=== PATIENT | female | born 1950 | race Caucasian/White ===

== ENCOUNTER 2019-04-10 09:39 | Inpatient (IN) ==
[2019-04-10] MEDS ORDERED: SODIUM CHLORIDE 0.9% 500 ML IV SCH (10:30)
[2019-04-10 11:00] LABS: Hematocrit (blood only) 20.8 % (37-47); Hemoglobin 6.1 g/dL (12.0-16.0); Mean Corpuscular Hgb Conc 29.3 g/dL (32-36); Mean Corpuscular Volume 81.6 fL (80-100); Mean Platelet Volume 8.5 fL (7.4-10.4); Platelet Count 514 K/uL (130-400); RDW Coefficient of Variation 14.2 % (11.5-14.5); RDW Standard Deviation 42.7 fL (36.4-46.3); Red Blood Count 2.55 M/uL (4.2-5.4); White Blood Count 6.12 K/uL (4.8-10.8)
[2019-04-10 11:04] LABS: Alanine Aminotransferase 21 U/L (12-78); Aspartate Aminotransferase 10 U/L (15-37); Blood Urea Nitrogen 22 mg/dl (7-18); Calcium 9.2 mg/dl (8.5-10.1); Carbon Dioxide 28 mmol/L (21-32); Chloride 109 mmol/L (98-107); Creatinine Clr Calc Pharmacy 60.1 ml/min; Est GFR (African American) 75.1; Est GFR (Non-African American) 64.8; Glucose 97 mg/dl (70-99); Sodium 142 mmol/L (136-145)
[2019-04-10 11:08] LABS: Albumin Globulin Ratio 1.5 (0.9-2); Alkaline Phosphatase 93 U/L (45-117); Bilirubin,Total 0.3 mg/dl (0.2-1); Globulin 2.6 gm/dl (2.5-4.0); Total Protein 6.6 gm/dl (6.4-8.2); Troponin I < 0.015 ng/ml (0-0.045)
[2019-04-10 11:09] LABS: D Dimer 1260 ug/L FEU (0-500)
[2019-04-10 11:16] LABS: Basophils # (auto) 0.03 K/uL (0-0.2); Basophils % (auto) 0.5 %; Eosinophils # (auto) 0.31 K/uL (0-0.5); Eosinophils % (auto) 5.1 %; Immature Granulocytes # (auto) 0.02 K/uL (0.00-0.02); Immature Granulocytes % (auto) 0.3 %; Lymphocytes # (auto) 1.21 K/uL (1.2-3.4); Lymphocytes % (auto) 19.8 %; Monocytes # (auto) 0.63 K/uL (0.11-0.59); Monocytes % (auto) 10.3 %; Neutrophils # (auto) 3.92 K/uL (1.4-6.5); RBC Morphology Unremarkable
[2019-04-10] MEDS ORDERED: SODIUM CHLORIDE 0.9% 250 ML IV PRN ×3 (11:23→16:02)
[2019-04-10] MEDS ORDERED: OPTIRAY 320 125ml IV PRN (11:31)
--- NOTE | 2019-04-10 11:57 | CT Scan Report ---
CT ANGIOGRAPHY OF THE CHEST, PULMONARY EMBOLUS PROTOCOL CLINICAL HISTORY: Chest pain and shortness of breath. COMPARISON STUDY: No previous studies for comparison. TECHNIQUE: Following IV administration of 97 mL of Optiray-320, helical axial images of the chest wer e obtained utilizing the pulmonary embolus protocol. Maximal intensity projections and sagittal and coronal reformats were viewed on an independent 3D workstation. IV contrast was administered without complication. Automated exposure control was utilized for the study. A dose lowering technique was utilized adhering to the principles of ALARA. CT DOSE: 280.87 mGy.cm FINDINGS: No pulmonary emboli are identified. There is no thoracic aortic dissection. The heart is m ildly enlarged. There is moderate coronary artery calcification. A moderate sized hiatal hernia is no olga. Central airways are patent. No consolidation to suggest pneumonia. Subpleural opacities reflect atelectasis. No pneumothorax or pleural effusion is noted. Bony thorax and upper abdomen are unremark able. IMPRESSION: 1. No pulmonary emboli identified. 2. No acute intrathoracic findings. 3. Mild cardiomegaly and moderate coronary artery calcification. 4. Moderate-sized hiatal hernia. Electronically signed by: Brenden Miller M.D. 04/10/2019 11:56 AM
--- NOTE | 2019-04-10 13:03 | Emergency Department Note ---
Entered by Nguyen Guajardo acting as a scribe for Tanner Butler DO History of Present Illness General Chief complaint: Tachycardia Stated complaint: FAST HEART RATE, SOB Time Seen by Provider: 04/10/19 09:56 Source: patient History of Present Illness Onset (ago): day(s) 8 Location: chest Pain Consistency: + intermittent (episodes) Maximum Pain Intensity: 2 Quality: + other (tachycardia) Relieved By: + rest Exacerbated By: + other (exertion) Associated symptoms: + shortness of breath and + other (light-headed, dizzy, fatigued, chest pressure, swelling in bilateral lower legs) The patient is a 68 year old female that is presenting to the Emergency Room with complaints of intermittent episodes of tachycardia that started 8 days ago following a cruise. The patient reports that she was picking up her luggage when she felt her heart pounding. She states that she started feeling light-headed, dizzy, and short of breath. She notes that the episode lasted around 5 minutes. The patient reports that she had two more episodes yesterday after mild exertion. She states that she had similar symptoms to the first episode and that they lasted around 5 minutes as well. She notes that the symptoms resolve completely in between episodes except some slight chest pressure. She reports that she is not short of breath outside of these episodes. She states that she checked her pulse during the episode and it was 130 bpm. She notes that she feels more fatigued than usual this past week. The patient states that she can hear her heart pumping in her ears when she lays down at night. She reports that she went to [facility] this morning but was sent to the Emergency Room for further evaluation. She notes that her mother and brother have a history of atrial fibrillation so she wanted to rule out that possibility. The patient reports that she has some swelling in her bilateral lower legs. She notes that she had CHF after a bout of pneumonia but states that it has resolved and she discontinued her Lasix. The patient states that she has a history of inflammatory arthritis, mixed connective tissue disorder, hypertension, and opiate addiction. She notes that she has been to see a [facility] this past week but states that she has been unable to establish regular primary care in the area as of yet. Home Medications Home Medications Medication Instructions Recorded Confirmed Type diltiazem HCl [Cardizem LA] 300 mg PO DAILY 04/10/19 04/10/19 History duloxetine [Cymbalta] 30 mg PO BID 04/10/19 04/10/19 History famotidine 40 mg PO DAILY 04/10/19 04/10/19 History gabapentin [Neurontin] 600 mg PO TID 04/10/19 04/10/19 History lactobacillus combination no.4 3,000 mmu cells PO DAILY 04/10/19 04/10/19 History [Probiotic] leflunomide 10 mg PO DAILY 04/10/19 04/10/19 History lisinopril 40 mg PO DAILY 04/10/19 04/10/19 History meloxicam [Mobic] 7.5 mg PO BID 04/10/19 04/10/19 History mirtazapine [Remeron] 30 mg PO HS 04/10/19 04/10/19 History prednisone 5 mg PO DAILY 04/10/19 04/10/19 History ropinirole [Requip] 0.5 mg PO BID 04/10/19 04/10/19 History trazodone 0 mg PO HS PRN 04/10/19 04/10/19 History triamterene-hydrochlorothiazid 1 cap PO DAILY 04/10/19 04/10/19 History [Dyazide] Allergies Allergy/AdvReac Type Severity Reaction Status Date / Time bupropion [From Wellbutrin] Allergy Seizure Unverified 04/10/19 10:43 Beta-Blockers AdvReac Dizziness Unverified 04/10/19 10:43 (Beta-Adrenergic Bloc ceftriaxone [From Rocephin] AdvReac Rash Unverified 04/10/19 10:43 Past Med/Surg History Medical History Hypertension (Chronic) Pneumonia (Acute) Restless leg syndrome (Chronic) Opiate addiction (Resolved) Inflammatory arthritis (Chronic) Mixed connective tissue disease (Chronic) Surgical History History of knee replacement (Resolved) Family History Other Atrial fibrillation Social History marital status: Current Living Situation: Spouse current occupational status: retired Feels Safe at Home: Yes Smoking Status: Never smoker Review of Systems See HPI for pertinent positives & negatives. and A total of 10 systems reviewed and were otherwise negative Physical Exam Vital Signs Vital Signs - 24 hr 04/10/19 09:45 04/10/19 09:52 04/10/19 11:32 Temperature 36.8 C Temperature Source Oral Sepsis Recent Fever Within 48 Hours No Sepsis New/Unexplained Change in Mental Status No Sepsis Action Taken by Nursing No Action Required Pulse Rate 97 H 86 Pulse Rate [Apical] 95 H Respiratory Rate 20 18 16 Respiratory Effort / Characteristics Non-Labored Spontaneous Respiratory Depth Normal Blood Pressure 149/65 H Blood Pressure [Right Arm] 147/83 H Blood Pressure Mean 93 Blood Pressure Mean [Right Arm] 104 Pulse Oximetry 98 97 99 Oxygen Delivery Method Room Air Room Air Room Air CONSTITUTIONAL/VITAL SIGNS: Reviewed / noted above. GENERAL: Non-toxic in appearance. INTEGUMENTARY: Warm, dry, and [place]. HEAD: Normocephalic. EYES: without scleral icterus or trauma. ENT/OROPHARYNX: clear and moist. LYMPHADENOPATHY/NECK: Is supple without lymphadenopathy or meningismus. RESPIRATORY: Lungs clear and equal. CARDIOVASCULAR: Regular rate and rhythm. GI/ABDOMEN: Soft and nontender. No organomegaly or pulsatile mass. No rebound or guarding. Normal bowel sounds. RECTAL: Guaiac positive light brown stool. EXTREMITIES: Warm and well perfused. BACK: No CVA tenderness. NEUROLOGICAL: Intact without focal deficits. PSYCHIATRIC: normal affect. MUSCULOSKELETAL: Normally developed with good muscle tone. Course 1003:The patient was evaluated in room A11B. A complete history and physical examination was performed. 1210: I updated the patient on her current lab and imaging results. 1220:I discussed the patients case with Guerrero Ray PA-C [facility], who will evaluate the patient for further management and care with Dr. Diaz as the att ending physician. 1230: Upon reevaluation, the patient is resting comfortably. I discussed laboratory and radiographic results with the patient. She verbalized agreement of the treatment plan. The patient will be evaluated for further management and care. Consultations Consultation #1: I discussed the patients case with Guerrero Ray PA-C [facility], who will evaluate the patient for further management and care with Dr. Diaz as the attending physician. Time: 12:20 Administered Medications Ioversol (Optiray 320 125ml) 97 ml IV ONCE PRN PRN Reason: Interaction Checking Stop: 04/14/19 11:30 Last Admin: 04/10/19 11:31 Dose: 97 ml Documented by: [id number] Discontinued Medications Sodium Chloride (Nss) 500 mls @ 999 mls/hr IV .Q31M TIMBO Stop: 04/10/19 11:00 Last Infusion: 04/10/19 11:05 Dose: 0 mls/hr Documented by: [id number] Admin: 04/10/19 10:35 Dose: 999 mls/hr Documented by: [id number] Medical Decision Making Differential Diagnosis The Differential that were considered includes acute myocardial infarction, acute coronary syndrome, myocarditis, pericarditis, pericardial effusions /tamponad, esophageal perforation, thoracic aortic dissection, pulmonary embolism, pneumonia, pneumothorax, pancreatitis, shingles, acute cholecystitis, perforated abdominal viscus. Medical Records Attestation: I reviewed the patient's medical records. Home Medications Current Medication List: was personally reviewed by me Laboratory Data Attestation: I reviewed the patient's lab results. Result diagrams: 04/10/19 09:57 04/10/19 09:57 Lab Results 04/10/19 04/10/19 04/10/19 Range/Units 09:57 09:57 09:57 WBC 6.12 (4.8-10.8) K/uL RBC 2.55 L (4.2-5.4) M/uL Hgb 6.1 L* (12.0-16.0) g/dL Hct 20.8 L* (37-47) % MCV 81.6 (80-100) fL MCH 23.9 L (25-34) pg MCHC 29.3 L (32-36) g/dL RDW Std Deviation 42.7 (36.4-46.3) fL RDW Coeff of Jerilyn 14.2 (11.5-14.5) % Plt Count 514 H (130-400) K/uL MPV 8.5 (7.4-10.4) fL Immature Gran % (Auto) 0.3 % Neut % (Auto) 64.0 % Lymph % (Auto) 19.8 % Piute % (Auto) 10.3 % Eos % (Auto) 5.1 % Baso % (Auto) 0.5 % Immature Gran # (Auto) 0.02 (0.00-0.02) K/uL Neut # (Auto) 3.92 (1.4-6.5) K/uL Lymph # (Auto) 1.21 (1.2-3.4) K/uL Pi[place] # (Auto) 0.63 H (0.11-0.59) K/uL Eos # (Auto) 0.31 (0-0.5) K/uL Baso # (Auto) 0.03 (0-0.2) K/uL RBC Morphology Unremarkable D-Dimer 1260 H* (0-500) ug/L FEU Sodium 142 (136-145) mmol/L Potassium 4.0 (3.5-5.1) mmol/L Chloride 109 H (98-107) mmol/L Carbon Dioxide 28 (21-32) mmol/L Anion Gap 5.0 (3-11) BUN 22 H (7-18) mg/dl Creatinine 0.90 (0.6-1.2) mg/dl Est Cr Clr Drug Dosing 60.1 ml/min Est GFR ( Amer) 75.1 Est GFR (Non-Af Amer) 64.8 BUN/Creatinine Ratio 25.0 H (10-20) Glucose 97 (70-99) mg/dl Calcium 9.2 (8.5-10.1) mg/dl Total Bilirubin 0.3 (0.2-1) mg/dl AST 10 L (15-37) U/L ALT 21 (12-78) U/L Alkaline Phosphatase 93 (45-117) U/L Troponin I < 0.015 (0-0.045) ng/ml Total Protein 6.6 (6.4-8.2) gm/dl Albumin 4.0 (3.4-5.0) gm/dl Globulin 2.6 (2.5-4.0) gm/dl Albumin/Globulin Ratio 1.5 (0.9-2) Blood Type Blood Type Recheck Antibody Screen Crossmatch 04/10/19 04/10/19 Range/Units 11:36 11:49 WBC (4.8-10.8) K/uL RBC (4.2-5.4) M/uL Hgb (12.0-16.0) g/dL Hct (37-47) % MCV (80-100) fL MCH (25-34) pg MCHC (32-36) g/dL RDW Std Deviation (36.4-46.3) fL RDW Coeff of Jerilyn (11.5-14.5) % Plt Count (130-400) K/uL MPV (7.4-10.4) fL Immature Gran % (Auto) % Neut % (Auto) % Lymph % (Auto) % Pi[place] % (Auto) % Eos % (Auto) % Baso % (Auto) % Immature Gran # (Auto) (0.00-0.02) K/uL Neut # (Auto) (1.4-6.5) K/uL Lymph # (Auto) (1.2-3.4) K/uL [place] # (Auto) (0.11-0.59) K/uL Eos # (Auto) (0-0.5) K/uL Baso # (Auto) (0-0.2) K/uL RBC Morphology D-Dimer (0-500) ug/L FEU Sodium (136-145) mmol/L Potassium (3.5-5.1) mmol/L Chloride (98-107) mmol/L Carbon Dioxide (21-32) mmol/L Anion Gap (3-11) BUN (7-18) mg/dl Creatinine (0.6-1.2) mg/dl Est Cr Clr Drug Dosing ml/min Est GFR ( Amer) Est GFR (Non-Af Amer) BUN/Creatinine Ratio (10-20) Glucose (70-99) mg/dl Calcium (8.5-10.1) mg/dl Total Bilirubin (0.2-1) mg/dl AST (15-37) U/L ALT (12-78) U/L Alkaline Phosphatase (45-117) U/L Troponin I (0-0.045) ng/ml Total Protein (6.4-8.2) gm/dl Albumin (3.4-5.0) gm/dl Globulin (2.5-4.0) gm/dl Albumin/Globulin Ratio (0.9-2) Blood Type O Positive Blood Type Recheck O Positive Antibody Screen NEGATIVE Crossmatch See Detail Imaging Data Radiologist's Impression: Radiology results as stated below per my review and the radiologist's interpretation: CT ANGIOGRAPHY OF THE CHEST, PULMONARY EMBOLUS PROTOCOL CLINICAL HISTORY: Chest pain and shortness of breath. COMPARISON STUDY: No previous studies for comparison. TECHNIQUE: Following IV administration of 97 mL of Optiray-320, helical axial images of the chest were obtained utilizing the pulmonary embolus protocol. Maximal intensity projections and sagittal and coronal reformats were viewed on an independent 3D workstation. IV contrast was administered without complication. Automated exposure control was utilized for the study. A dose lowering technique was utilized adhering to the principles of ALARA. CT DOSE: 280.87 mGy.cm FINDINGS: No pulmonary emboli are identified. There is no thoracic aortic dissection. The heart is mildly enlarged. There is moderate coronary artery calcification. A moderate sized hiatal hernia is noted. Central airways are patent. No consolidation to suggest pneumonia. Subpleural opacities reflect atelectasis. No pneumothorax or pleural effusion is noted. Bony thorax and upper abdomen are unremarkable. IMPRESSION: 1. No pulmonary emboli identified. 2. No acute intrathoracic findings. 3. Mild cardiomegaly and moderate coronary artery calcification. 4. Moderate-sized hiatal hernia. Electronically signed by: Brenden Miller M.D. 04/10/2019 11:56 AM ECG Data Attestation: I personally reviewed and interpreted this ECG as follows: Indication: chest pain Rate (beats per minute): 90 Rhythm: normal sinus (with sinus arrhythmia) Findings: no PAC, no PVC, no ST elevation and no ectopy Blood Pressure Blood Pressure Findings: Elevated blood pressure Blood Pressure Disposition: Referred to patients primary care provider MDM Narrative This is a 68-year-old female who presents to the emergency department with a chief complaint of intermittent shortness of breath and heart pounding for the past week. Her symptoms are mainly with exertion. The patient does not have a local PCP. She recently moved from [place] after going through drug rehab. The patient denies any symptoms at this moment while at rest. Her episodes last from 1 to 5 minutes and she also reported some lightheadedness with them. She states that she checked her heart rate yesterday when she had the symptoms and her heart rate was 130. She reports a history of rheumatoid arthritis as well as hypertension, depression and restless leg syndrome. She also takes medication for GERD. The patient's EKG shows a normal sinus rhythm. Her vital signs are stable. Hemoglobin is 6.6. D-dimer was elevated. A CT scan of the chest did not show acute process. Troponin was negative and a complete metabolic panel was unremarkable. The patient was treated with IV fluids as well as a blood transfusion. She will be seen by the hospitalist for further inpatient evaluation and care. Of note, the patient's stool was tested and is light brown guaiac positive. Impression & Plan Anemia, GI bleed Critical Care Time I have personally spent 35 minutes of critical care time in the direct management of this patient. This includes bedside care, interpretation of diagnostic studies, and testing, discussion with consultants, patient, and family members, and other required patient management activities. This 35 minutes is in excess of all separately billable procedures. Critical Care Time: Yes Total Critical Care Time: 35 Discharge Plan Visit Data Chief Complaint: Tachycardia Stated Complaint: FAST HEART RATE, SOB ED Provider: Tanner Butler Discharge Problem: Anemia, GI bleed Patient Disposition: Being Evaluated by Hospitalist Forms Stand Alone Forms: [facility] Prescriptions Prescriptions: No Action famotidine 40 mg Tablet 40 mg PO DAILY RF: 0 prednisone 5 mg Tablet 5 mg PO DAILY RF: 0 leflunomide 10 mg Tablet 10 mg PO DAILY RF: 0 triamterene-hydrochlorothiazid [Dyazide] 37.5-25 mg Capsule 1 cap PO DAILY RF: 0 meloxicam [Mobic] 7.5 mg Tablet 7.5 mg PO BID RF: 0 trazodone 100 mg Tablet PO HS PRN (Reason: Sleep) RF: 0 mirtazapine [Remeron] 30 mg Tablet 30 mg PO HS RF: 0 ropinirole [Requip] 0.5 mg Tablet 0.5 mg PO BID RF: 0 gabapentin [Neurontin] 300 mg Capsule 600 mg PO TID RF: 0 lisinopril 40 mg Tablet 40 mg PO DAILY RF: 0 diltiazem HCl [Cardizem LA] 300 mg Tablet Extended Release 24 Hr 300 mg PO DAILY RF: 0 duloxetine [Cymbalta] 30 mg Capsule,Delayed Release(Dr/Ec) 30 mg PO BID RF: 0 Probiotic 3 billion cell Capsule 3,000 mmu cells PO DAILY RF: 0 Referrals Referrals: PCP,NO [Primary Care Provider] - Discharge Problem: Anemia Qualifiers: Anemia type: unspecified type Qualified Code(s): D64.9 - Anemia, unspecified GI bleed Qualifiers: GI bleed type/associated pathology: unspecified gastrointestinal hemorrhage type Qualified Code(s): K92.2 - Gastrointestinal hemorrhage, unspecified The scribe's documentation has been prepared under my direction and personally reviewed by me in its entirety. I confirm that the note above accurately reflects all work, treatment, procedures, and medical decision making performed by me.
[2019-04-10 13:44] LABS: Iron 7 mcg/dl (35-150); Transferrin 342 mg/dl (200-360); Transferrin Percent Saturation 1 % (15-50)
--- NOTE | 2019-04-10 13:44 | History & Physical Report ---
Date of Service April 10, 2019 Assessment & Plan (1) Anemia: Patient presented with a hemoglobin of 6.1 with a guaiac positive stool Prior colonoscopy 6 months ago with benign adenoma and diverticulosis Transfuse 1 unit of packed red blood cells at this time and repeat H&H at 1800 hrs. Serial H&H every 6 hours Check peripheral blood smear MCV 81.6 -iron studies pending Consult gastroenterology -I spoke with Dr. Mccormick who will see the patient on a routine basis Pantoprazole 40 mg IV twice daily Continue home dose of famotidine orally Patient is on scheduled naproxen, meloxicam, and 5 mg of p.o. prednisone daily. Hold Mobic and naproxen. Full liquid diet today pending GI consultation (2) Mixed connective tissue disease: Follows with rheumatology as an outpatient Previous medical toxicity from spinal rods, replacement hip, replacement knees On scheduled naproxen, meloxicam, and prednisone as an outpatient Continue outpatient management (3) Hypertension: Hemodynamically stable Continue home meds Follow on telemetry EKG with no ST changes (4) Elevated d-dimer: CTA of the chest negative for pulmonary embolus (5) History of substance abuse: History of opiate dependence secondary to chronic pain for mixed connective tissue disorder * Completed rehab program 9 months ago * Do not use opiates for pain control History of ethanol abuse * Previous heavy use of wine * No ethanol intake for 9 months (6) DVT prophylaxis: No chemical prophylaxis secondary to profound anemia and requirement for blood transfusion Knee-high CHANDLER hose Knee-high SCDs Ambulate as tolerated Please refer to Dr. Diaz's addendum for further recommendations. History of Present Illness Attending: Dr. Diaz Is a 68-year-old female who presented for nondescript chest pain and lightheadedness. She reports that the symptoms started 8 days ago when she had lightheadedness, dizziness, shortness of breath, some palpitations. She had recurrence of the symptoms yesterday x2 when walking around her yard sales. After being yard so she went grocery shopping and was unable to carry her groceries into the house due to symptomology. She decided to wait until this morning and presented to an urgent care center who referred her to the emergency department. Here she was found to be an a sinus tachycardia with an otherwise n ormal EKG. Routine laboratory studies revealed profound anemia with a hemoglobin of 6.1. DAVID revealed guaiac positive stool. Patient is on scheduled naproxen and meloxicam as well as 5 mg of prednisone p.o. daily. Patient denies any melena, hematochezia, hematemesis. She had no evidence of active bleeding. Patient did have a colonoscopy 6 months ago with an adenoma which was benign and evidence of diverticulosis. Patient denies any chest pain, back pain, flank pain, no abdominal pain, no pain with eating, no orthopnea, no fever, chills, sweats, rigors. She has no recent falls. She has no recent syncope. She has no other acute symptoms. Patient has a past medical history including mixed connective tissue disorder, esophageal achalasia, GERD, hypertension, history of syncope, history of CHF, history of anemia, history of depression, history of lower extremity neuropathy, hemorrhoids, degenerative disc disease, hip and knee replacement. Patient recently moved to this area from [place] to be closer to her immediate family. She was previously but was . She has 2 adult children that live out of the area. She is in the process of building a home in the [facility]. She is currently unassigned and looking for an key filer to follow her in this area. Primary Care Provider: NO PCP Allergies Allergy/AdvReac Type Severity Reaction Status Date / Time bupropion [From Wellbutrin] Allergy Seizure Unverified 04/10/19 10:43 Beta-Blockers AdvReac Dizziness Unverified 04/10/19 10:43 (Beta-Adrenergic Bloc ceftriaxone [From Rocephin] AdvReac Rash Unverified 04/10/19 10:43 Home Medications Home Medications Medication Instructions Recorded Confirmed Type diltiazem HCl [Cardizem LA] 300 mg PO DAILY 04/10/19 04/10/19 History duloxetine [Cymbalta] 30 mg PO BID 04/10/19 04/10/19 History famotidine 40 mg PO DAILY 04/10/19 04/10/19 History gabapentin [Neurontin] 600 mg PO TID 04/10/19 04/10/19 History lactobacillus combination no.4 3,000 mmu cells PO DAILY 04/10/19 04/10/19 History [Probiotic] leflunomide 10 mg PO DAILY 04/10/19 04/10/19 History lisinopril 40 mg PO DAILY 04/10/19 04/10/19 History meloxicam [Mobic] 7.5 mg PO BID 04/10/19 04/10/19 History mirtazapine [Remeron] 30 mg PO HS 04/10/19 04/10/19 History prednisone 5 mg PO DAILY 04/10/19 04/10/19 History ropinirole [Requip] 0.5 mg PO BID 04/10/19 04/10/19 History trazodone 0 mg PO HS PRN 04/10/19 04/10/19 History triamterene-hydrochlorothiazid 1 cap PO DAILY 04/10/19 04/10/19 History [Dyazide] Past Med/Surg History Medical History History of substance abuse Elevated d-dimer Anemia (Acute) Hypertension (Chronic) Pneumonia (Acute) Restless leg syndrome (Chronic) Opiate addiction (Resolved) Inflammatory arthritis (Chronic) Mixed connective tissue disease (Chronic) Surgical History History of knee replacement (Resolved) Family History Other Atrial fibrillation Social History Preferred Language: Indonesian Communication Ability: Effective Beliefs That Will Affect Care: None marital status: Current Living Situation: Other Current Living Situation Comment: living with friend current occupational status: retired 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 Pleasant. Talkative EYES: No icterus, gaze conjugate. PERRL NOSE: No evidence of epistaxis MOUTH: No lesions or candidiasis. Tongue midline. Mucosa moist NECK: Supple. No appreciation carotid bruits LUNGS: CTA B/L, no wheezes, rales or rhonchi. HEART: Regular, tachycardic. Grade 2 systolic murmur ABDOMEN: Soft, NT, ND, BS Present. No guarding or rebound tenderness EXTREMITIES: No LE edema, pedal pulses intact. NEURO: A&OX3. PERRLA. No slurred speech. Deep tendon reflexes at the biceps, brachioradialis, patellar tendons 2/4 and equal. Strength equal and appropriate bilaterally. No pronator drift. Cerebellar function intact with [id number], rapid alternating movements. Gait and Romberg deferred. Toes downgoing bilaterally. No appreciation of neurological deficit. Results & Data Vital Signs (Past 12 Hours) Vital Signs Temp Pulse Pulse Resp BP BP Pulse Ox 04/10/19 13:07 94 H 16 157/94 H 98 04/10/19 11:32 95 H 16 147/83 H 99 04/10/19 09:52 86 18 97 04/10/19 09:45 36.8 C 97 H 20 149/65 H 98 Laboratory Results 04/10/19 09:57 04/10/19 09:57 Abnormal Labs 04/10/19 04/10/19 04/10/19 09:57 09:57 09:57 RBC 2.55 L Hgb 6.1 L* Hct 20.8 L* MCH 23.9 L MCHC 29.3 L Plt Count 514 H [place] # (Auto) 0.63 H D-Dimer 1260 H* Chloride 109 H BUN 22 H BUN/Creatinine Ratio 25.0 H Iron Transferrin % Sat AST 10 L Crossmatch 04/10/19 04/10/19 11:36 13:12 RBC Hgb Hct MCH MCHC Plt Count [place] # (Auto) D-Dimer Chloride BUN BUN/Creatinine Ratio Iron 7 L Transferrin % Sat 1 L AST Crossmatch See Detail Diagnostic Findings CT ANGIOGRAPHY OF THE CHEST, PULMONARY EMBOLUS PROTOCOL CLINICAL HISTORY: Chest pain and shortness of breath. COMPARISON STUDY: No previous studies for comparison. TECHNIQUE: Following IV administration of 97 mL of Optiray-320, helical axial images of the chest were obtained utilizing the pulmonary embolus protocol. Maximal intensity projections and sagittal and coronal reformats were viewed on an independent 3D workstation. IV contrast was administered without complication. Automated exposure control was utilized for the study. A dose lowering technique was utilized adhering to the principles of ALARA. CT DOSE: 280.87 mGy.cm FINDINGS: No pulmonary emboli are identified. There is no thoracic aortic dissection. The heart is mildly enlarged. There is moderate coronary artery calcification. A moderate sized hiatal hernia is noted. Central airways are patent. No consolidation to suggest pneumonia. Subpleural opacities reflect atelectasis. No pneumothorax or pleural effusion is noted. Bony thorax and upper abdomen are unremarkable. IMPRESSION: 1. No pulmonary emboli identified. 2. No acute intrathoracic findings. 3. Mild cardiomegaly and moderate coronary artery calcification. 4. Moderate-sized hiatal hernia. Electronically signed by: Brenden Miller M.D. 04/10/2019 11:56 AM ECG Additional Comments: EKG 04/10/2019 at 9:52 AM Ventricular rate 90 DC interval 148 QRS duration 88 QT/QTc 340/4 1 5 PRT axis 76 29 Normal sinus rhythm with sinus arrhythmia EKG shows NSR with normal intervals, normal QRS complexes, no ST elevation or depression, and no arrhythmias. No previous EKGs in the system No significant change to EKG 12/16/2017 which will be placed in the chart Code Status & VTE Plan Code Status Level I: Full resuscitation VTE Prophylaxis Plan VTE Prophylaxis will be ordered: Yes Reason for no VTE drug order: Contraindicated (Profound anemia with a hemoglobin of 6.1 and stool positive fecal occult blood) Critical Care Time Critical Care Time: No Prolonged Care Time Prolonged Care Time: No Supervising Physician Co-Signing Physician Notes Attending note: patient seen and examined with Guerrero CASTILLO I agree with her HPI, history, exam, ROS and A/P. I personally reviewed the labs and imaging findings. Patient with 8 days of gradual weakness, dyspnea on exertion, some mild chest pain and palpitations. Never noticed any dark stools, no history of GI bleeding, had a polyp on colonoscopy 6 months ago. Hb 6.1 on admission, sinus tachycardia. CTA chest negative for PE given the chest pain and high d dimer - Symptomatic anemia: guaiac positive rectal exam but no convincing story for melena or GI bleeding will transfuse two units PRBC and follow Hb consult GI NPO after midnight for possible EGD - Achalasia: has history of this, has some mild dysphagia if she does not drink water with meals denies any treatments such as dilation, botox injection or surgery was offered [place] where she used to live but refused - Chest pain: no PE likely her pain and dyspnea due to anemia (1) Anemia Anemia type: unspecified type Qualified Code(s): D64.9 - Anemia, unspecified
[2019-04-10] MEDS ORDERED: POLYETHYLENE (MIRALAX) 17 GM PACK PO PRN (14:33)
[2019-04-10] MEDS ORDERED: ONDANSETRON INJ 2 MG/ML 2 ML VIAL IV PRN (14:33)
[2019-04-10] MEDS: PANTOprazole 40 MG in SYRINGE 0 ML IV SCH ×2 (16:31→20:44)
[2019-04-10] MEDS: GABAPENTIN 600 MG TAB PO SCH ×2 (17:43→20:45)
[2019-04-10] MEDS: LACTOBACILLUS ACIDOPHILUS (FLORANEX) TAB PO SCH (17:44)
[2019-04-10 18:21] LABS: Hematocrit (blood only) 21.9 % (37-47); Hemoglobin 6.9 g/dL (12.0-16.0)
[2019-04-10] MEDS: DULOXETINE HCL 30 MG CAP PO SCH (20:45)
[2019-04-10] MEDS: ROPINIROLE HCL 0.25 MG TABLET PO SCH (20:47)
[2019-04-10] MEDS: MIRTAZAPINE TAB 15 MG TAB PO SCH (20:47)
[2019-04-11 00:18] LABS: Hemoglobin 8.4 g/dL (12.0-16.0)
[2019-04-11 05:54] LABS: Basophils # (auto) 0.04 K/uL (0-0.2); Basophils % (auto) 0.7 %; Eosinophils % (auto) 9.1 %; Hematocrit (blood only) 26.2 % (37-47); Hemoglobin 8.4 g/dL (12.0-16.0); Immature Granulocytes # (auto) 0.01 K/uL (0.00-0.02); Immature Granulocytes % (auto) 0.2 %; Lymphocytes # (auto) 1.41 K/uL (1.2-3.4); Lymphocytes % (auto) 25.7 %; Mean Corpuscular Hgb Conc 32.1 g/dL (32-36); Mean Corpuscular Volume 80.9 fL (80-100); Mean Platelet Volume 8.4 fL (7.4-10.4); Monocytes # (auto) 0.68 K/uL (0.11-0.59); Monocytes % (auto) 12.4 %; Neutrophils # (auto) 2.84 K/uL (1.4-6.5); Neutrophils % (auto) 51.9 %; Platelet Count 418 K/uL (130-400); RDW Coefficient of Variation 14.1 % (11.5-14.5); RDW Standard Deviation 42.2 fL (36.4-46.3); Red Blood Count 3.24 M/uL (4.2-5.4); White Blood Count 5.48 K/uL (4.8-10.8)
[2019-04-11 06:27] LABS: BUN Creatinine Ratio 15.4 (10-20); Calcium 8.9 mg/dl (8.5-10.1); Est GFR (African American) 87.9; Est GFR (Non-African American) 75.8; Potassium 3.8 mmol/L (3.5-5.1)
--- NOTE | 2019-04-11 06:35 | Ultrasound Report ---
US venous doppler LE BI HISTORY: Pain. Edema. R/O DVT COMPARISON STUDY: None. FINDINGS: There is normal compressibility, flow, and augmentation within the bilateral lower extremit y deep venous systems. IMPRESSION: No DVT within the right or left lower extremity. Incidental note is made of a 5 x 2 cm complex left p opliteal cyst. The above report was generated using voice recognition software. It may contain grammatical, syntax or spelling errors. Electronically signed by: Fabio Salter M.D. 04/11/2019 6:34 AM
[2019-04-11] MEDS: dilTIAZem HCL 300 MG CAPCR PO SCH (08:04)
[2019-04-11] MEDS: LISINOPRIL 40 MG TAB PO SCH (08:05)
[2019-04-11] MEDS: GABAPENTIN 600 MG TAB PO SCH ×2 (08:05→15:49)
[2019-04-11] MEDS: TRIAMTERENE/HCTZ 37.5/25MG CAP PO SCH (08:05)
[2019-04-11] MEDS: predniSONE 5 MG TAB PO SCH (08:05)
[2019-04-11] MEDS: FAMOTIDINE 20 MG TAB PO SCH (08:05)
[2019-04-11] MEDS: LEFLUNOMIDE 10 MG TAB PO SCH (08:05)
[2019-04-11] MEDS: ROPINIROLE HCL 0.25 MG TABLET PO SCH ×2 (08:05→20:21)
[2019-04-11] MEDS: DULOXETINE HCL 30 MG CAP PO SCH ×2 (08:05→20:21)
[2019-04-11] MEDS: LACTOBACILLUS ACIDOPHILUS (FLORANEX) TAB PO SCH ×3 (08:05→15:50)
[2019-04-11] MEDS: PANTOprazole 40 MG in SYRINGE 0 ML IV SCH ×2 (08:06→20:20)
[2019-04-11] MEDS: ACETAMINOPHEN 325 MG TAB PO PRN ×2 (09:38→15:48)
--- NOTE | 2019-04-11 11:03 | Gastrointestinal Consultation ---
Date of Consultation April 11, 2019 Assessment & Plan (1) Anemia: 68 year old female admitted w/ symptomatic anemia, HGB 6.1 w/o bump in BUN. Has had appropriate response to 2 unit RBC w/ HGB 8.4 this AM. Denies any black/bloody stools but does have risk factors for UGI blood using PO steroids, aleva, mobic daily. She reports a recent c-scopy in [place] for a positive cologuard which showed a large polyp - NPO - Would start IV PPI BID - EGD today - Pending results of EGD will discuss if colonoscopy is indicatd - Trend H&H - Monitor and document all GI ouptut - Transfuse PRN Thank you for allowing us to participate in the care of this patient. Please call with any acute changes, questions or concerns. Please see addendum below with additional recommendation from my supervising physician. Present on Admission?: Yes Supervising Physician Co-Signing Physician Notes I performed a history and physical examination of the patient, including specifically on physical exam - soft, nontender abdomen. I have discussed the patient's management with Andria. Please refer to the nurse practitioner's note for the documented findings and plan of care. EGD today to r/o PUD History of Present Illness Reason for Consultation: anemia Requesting Physician: Emiliana Attending Physician: Tawanna Hopson MD History of Present Illness 68 year old female with history of mixed connective tissue disorder, achalasia, CHF, anemia and others below who presented to the ED for lightheadedness, dizziness - GI asked to evaluate for anemia. Pt was seen and evaluated, chart reviewed. She notes she is currently living in [place] w/ plans to move to [place] to a detention community. New to the area from [facility] - just passed. Just returned from cruise to [facility]. Since she has been home she has had intermittent dizziness, lightheadedness which she thought was sea sickness. However, symptoms persistent and notes she began to tire easily. Denies any CP but would have SOB carrying groceries and walking far distance. Denies any change in bowel habites. Having formed, brown stools. No black or bloody stools. No nausea, vomiting. PO steroids daily Aleve daily Meloxicam daily No blood thinners No ETOH ETOH: she reports about 5-10 years ago Colonoscopy: less than 1 year ago, she reports she had a colonic polyp at this time Allergies Allergy/AdvReac Type Severity Reaction Status Date / Time bupropion [From Wellbutrin] Allergy Seizure Unverified 04/10/19 10:43 Beta-Blockers AdvReac Dizziness Unverified 04/10/19 10:43 (Beta-Adrenergic Bloc ceftriaxone [From Rocephin] AdvReac Rash Unverified 04/10/19 10:43 Home Medications Home Medications Medication Instructions Recorded Confirmed Type diltiazem HCl [Cardizem LA] 300 mg PO DAILY 04/10/19 04/10/19 History duloxetine [Cymbalta] 30 mg PO BID 04/10/19 04/10/19 History famotidine 40 mg PO DAILY 04/10/19 04/10/19 History gabapentin [Neurontin] 600 mg PO TID 04/10/19 04/10/19 History lactobacillus combination no.4 3,000 mmu cells PO DAILY 04/10/19 04/10/19 History [Probiotic] leflunomide 10 mg PO DAILY 04/10/19 04/10/19 History lisinopril 40 mg PO DAILY 04/10/19 04/10/19 History meloxicam [Mobic] 7.5 mg PO BID 04/10/19 04/10/19 History mirtazapine [Remeron] 30 mg PO HS 04/10/19 04/10/19 History prednisone 5 mg PO DAILY 04/10/19 04/10/19 History ropinirole [Requip] 0.5 mg PO BID 04/10/19 04/10/19 History trazodone 0 mg PO HS PRN 04/10/19 04/10/19 History triamterene-hydrochlorothiazid 1 cap PO DAILY 04/10/19 04/10/19 History [Dyazide] Patient History Medical History History of substance abuse Elevated d-dimer Anemia (Acute) Hypertension (Chronic) Pneumonia (Acute) Restless leg syndrome (Chronic) Opiate addiction (Resolved) Inflammatory arthritis (Chronic) Mixed connective tissue disease (Chronic) Surgical History History of knee replacement (Resolved) Family History Other Atrial fibrillation Social History Preferred Language: Welsh Communication Ability: Effective Beliefs That Will Affect Care: None marital status: Current Living Situation: Other Current Living Situation Comment: living with friend current occupational status: retired 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 [employer] Other Information That Helps Us Care for You: No Feels Safe at Home: Yes Safety Concerns: Feels Safe At This Time Smoking Status: Former smoker Smoking End Date: 1984 Second Hand Exposure: No Hx Alcohol Use: Yes Hx Substance Use: Yes (Opioid dependance, EtOH dependance) substance use type: opiates Last Used Substance Other:: 9 mths ago rehab Review of Systems Constitutional: + fatigue; no fever, no chills and no anorexia Respiratory: + dyspnea on exertion; no cough, no chest congestion and no dyspnea Cardiovascular: + dyspnea on exertion; no chest pain, no chest pain at rest, no radiating jaw, neck or arm pain and no palpitations Gastrointestinal: no abdominal pain, no early satiety, no vomiting, no change in stools, no diarrhea/loose stools, no fecal incontinence, no blood in stools and no melena Physical Exam Constitutional: WD/WN, vitals as above Respiratory: normal respiratory effort, lungs clear to auscultation Cardiovascular: Rate/Rhythm: regular rate and regular rhythm Heart Sounds: no click and no gallop Palpation: no thrill Gastrointestinal (Abdomen): normal bowel sounds, soft, nontender, no hepatosplenomegaly Skin: no rashes, warm and dry Psychiatric: Orientation: alert and oriented x 3 Results & Data Vital Signs (Past 12 Hours) Vital Signs Temp Pulse Pulse Resp BP Pulse Ox 04/11/19 07:45 37.2 C 84 16 139/79 97 04/11/19 07:31 92 H 04/11/19 02:57 36.8 C 89 18 144/77 H 95 04/11/19 00:15 37 C 93 H 18 141/74 H 96 Laboratory Results 04/11/19 04/11/19 04/11/19 Range/Units : 05: 00:08 WBC 5.48 (4.8-10.8) K/uL RBC 3.24 L (4.2-5.4) M/uL Hgb 8.4 L 8.4 L (12.0-16.0) g/dL Hct 26.2 L 26.0 L (37-47) % MCV 80.9 (80-100) fL MCH 25.9 (25-34) pg MCHC 32.1 (32-36) g/dL RDW Std Deviation 42.2 (36.4-46.3) fL RDW Coeff of Jerilyn 14.1 (11.5-14.5) % Plt Count 418 H (130-400) K/uL MPV 8.4 (7.4-10.4) fL Immature Gran % (Auto) 0.2 % Neut % (Auto) 51.9 % Lymph % (Auto) 25.7 % Swain % (Auto) 12.4 % Eos % (Auto) 9.1 % Baso % (Auto) 0.7 % Immature Gran # (Auto) 0.01 (0.00-0.02) K/uL Neut # (Auto) 2.84 (1.4-6.5) K/uL Lymph # (Auto) 1.41 (1.2-3.4) K/uL Swain # (Auto) 0.68 H (0.11-0.59) K/uL Eos # (Auto) 0.50 (0-0.5) K/uL Baso # (Auto) 0.04 (0-0.2) K/uL RBC Morphology Peripher Smr Path Cons D-Dimer (0-500) ug/L FEU Sodium 142 (136-145) mmol/L Potassium 3.8 (3.5-5.1) mmol/L Chloride 110 H (98-107) mmol/L Carbon Dioxide 27 (21-32) mmol/L Anion Gap 5.0 (3-11) BUN 12 (7-18) mg/dl Creatinine 0.79 (0.6-1.2) mg/dl Est Cr Clr Drug Dosing 68.0 ml/min Est GFR ( Amer) 87.9 Est GFR (Non-Af Amer) 75.8 BUN/Creatinine Ratio 15.4 (10-20) Glucose 88 (70-99) mg/dl Calcium 8.9 (8.5-10.1) mg/dl Iron (35-150) mcg/dl TIBC (250-450) mcg/dl Transferrin (200-360) mg/dl Transferrin % Sat (15-50) % Total Bilirubin (0.2-1) mg/dl AST (15-37) U/L ALT (12-78) U/L Alkaline Phosphatase (45-117) U/L Troponin I (0-0.045) ng/ml Total Protein (6.4-8.2) gm/dl Albumin (3.4-5.0) gm/dl Globulin (2.5-4.0) gm/dl Albumin/Globulin Ratio (0.9-2) Blood Type Blood Type Recheck Antibody Screen Crossmatch 04/10/19 04/10/19 04/10/19 Range/Units 18:04 13:12 13:12 WBC (4.8-10.8) K/uL RBC (4.2-5.4) M/uL Hgb 6.9 L* (12.0-16.0) g/dL Hct 21.9 L (37-47) % MCV (80-100) fL MCH (25-34) pg MCHC (32-36) g/dL RDW Std Deviation (36.4-46.3) fL RDW Coeff of Jerilyn (11.5-14.5) % Plt Count (130-400) K/uL MPV (7.4-10.4) fL Immature Gran % (Auto) % Neut % (Auto) % Lymph % (Auto) % Swain % (Auto) % Eos % (Auto) % Baso % (Auto) % Immature Gran # (Auto) (0.00-0.02) K/uL Neut # (Auto) (1.4-6.5) K/uL Lymph # (Auto) (1.2-3.4) K/uL Swain # (Auto) (0.11-0.59) K/uL Eos # (Auto) (0-0.5) K/uL Baso # (Auto) (0-0.2) K/uL RBC Morphology Peripher Smr Path Cons D-Dimer (0-500) ug/L FEU Sodium (136-145) mmol/L Potassium (3.5-5.1) mmol/L Chloride (98-107) mmol/L Carbon Dioxide (21-32) mmol/L Anion Gap (3-11) BUN (7-18) mg/dl Creatinine (0.6-1.2) mg/dl Est Cr Clr Drug Dosing ml/min Est GFR ( Amer) Est GFR (Non-Af Amer) BUN/Creatinine Ratio (10-20) Glucose (70-99) mg/dl Calcium (8.5-10.1) mg/dl Iron 6 L 7 L (35-150) mcg/dl TIBC (250-450) mcg/dl Transferrin 342 (200-360) mg/dl Transferrin % Sat 1 L (15-50) % Total Bilirubin (0.2-1) mg/dl AST (15-37) U/L ALT (12-78) U/L Alkaline Phosphatase (45-117) U/L Troponin I (0-0.045) ng/ml Total Protein (6.4-8.2) gm/dl Albumin (3.4-5.0) gm/dl Globulin (2.5-4.0) gm/dl Albumin/Globulin Ratio (0.9-2) Blood Type Blood Type Recheck Antibody Screen Crossmatch 04/10/19 04/10/19 04/10/19 Range/Units 13:12 13:12 11:49 WBC (4.8-10.8) K/uL RBC (4.2-5.4) M/uL Hgb (12.0-16.0) g/dL Hct (37-47) % MCV (80-100) fL MCH (25-34) pg MCHC (32-36) g/dL RDW Std Deviation (36.4-46.3) fL RDW Coeff of Jerilyn (11.5-14.5) % Plt Count (130-400) K/uL MPV (7.4-10.4) fL Immature Gran % (Auto) % Neut % (Auto) % Lymph % (Auto) % Swain % (Auto) % Eos % (Auto) % Baso % (Auto) % Immature Gran # (Auto) (0.00-0.02) K/uL Neut # (Auto) (1.4-6.5) K/uL Lymph # (Auto) (1.2-3.4) K/uL Swain # (Auto) (0.11-0.59) K/uL Eos # (Auto) (0-0.5) K/uL Baso # (Auto) (0-0.2) K/uL RBC Morphology Peripher Smr Path Cons Cancelled D-Dimer (0-500) ug/L FEU Sodium (136-145) mmol/L Potassium (3.5-5.1) mmol/L Chloride (98-107) mmol/L Carbon Dioxide (21-32) mmol/L Anion Gap (3-11) BUN (7-18) mg/dl Creatinine (0.6-1.2) mg/dl Est Cr Clr Drug Dosing ml/min Est GFR ( Amer) Est GFR (Non-Af Amer) BUN/Creatinine Ratio (10-20) Glucose (70-99) mg/dl Calcium (8.5-10.1) mg/dl Iron (35-150) mcg/dl TIBC 445 (250-450) mcg/dl Transferrin (200-360) mg/dl Transferrin % Sat (15-50) % Total Bilirubin (0.2-1) mg/dl AST (15-37) U/L ALT (12-78) U/L Alkaline Phosphatase (45-117) U/L Troponin I (0-0.045) ng/ml Total Protein (6.4-8.2) gm/dl Albumin (3.4-5.0) gm/dl Globulin (2.5-4.0) gm/dl Albumin/Globulin Ratio (0.9-2) Blood Type Blood Type Recheck O Positive Antibody Screen Crossmatch 04/10/19 04/10/19 04/10/19 Range/Units 11:36 09:57 09:57 WBC (4.8-10.8) K/uL RBC (4.2-5.4) M/uL Hgb (12.0-16.0) g/dL Hct (37-47) % MCV (80-100) fL MCH (25-34) pg MCHC (32-36) g/dL RDW Std Deviation (36.4-46.3) fL RDW Coeff of Jerilyn (11.5-14.5) % Plt Count (130-400) K/uL MPV (7.4-10.4) fL Immature Gran % (Auto) % Neut % (Auto) % Lymph % (Auto) % Swain % (Auto) % Eos % (Auto) % Baso % (Auto) % Immature Gran # (Auto) (0.00-0.02) K/uL Neut # (Auto) (1.4-6.5) K/uL Lymph # (Auto) (1.2-3.4) K/uL Swain # (Auto) (0.11-0.59) K/uL Eos # (Auto) (0-0.5) K/uL Baso # (Auto) (0-0.2) K/uL RBC Morphology Peripher Smr Path Cons D-Dimer 1260 H* (0-500) ug/L FEU Sodium 142 (136-145) mmol/L Potassium 4.0 (3.5-5.1) mmol/L Chloride 109 H (98-107) mmol/L Carbon Dioxide 28 (21-32) mmol/L Anion Gap 5.0 (3-11) BUN 22 H (7-18) mg/dl Creatinine 0.90 (0.6-1.2) mg/dl Est Cr Clr Drug Dosing 60.1 ml/min Est GFR ( Amer) 75.1 Est GFR (Non-Af Amer) 64.8 BUN/Creatinine Ratio 25.0 H (10-20) Glucose 97 (70-99) mg/dl Calcium 9.2 (8.5-10.1) mg/dl Iron (35-150) mcg/dl TIBC (250-450) mcg/dl Transferrin (200-360) mg/dl Transferrin % Sat (15-50) % Total Bilirubin 0.3 (0.2-1) mg/dl AST 10 L (15-37) U/L ALT 21 (12-78) U/L Alkaline Phosphatase 93 (45-117) U/L Troponin I < 0.015 (0-0.045) ng/ml Total Protein 6.6 (6.4-8.2) gm/dl Albumin 4.0 (3.4-5.0) gm/dl Globulin 2.6 (2.5-4.0) gm/dl Albumin/Globulin Ratio 1.5 (0.9-2) Blood Type O Positive Blood Type Recheck Antibody Screen NEGATIVE Crossmatch See Detail 04/10/19 Range/Units 09:57 WBC (4.8-10.8) K/uL RBC (4.2-5.4) M/uL Hgb (12.0-16.0) g/dL Hct (37-47) % MCV (80-100) fL MCH (25-34) pg MCHC (32-36) g/dL RDW Std Deviation (36.4-46.3) fL RDW Coeff of Jerilyn (11.5-14.5) % Plt Count (130-400) K/uL MPV (7.4-10.4) fL Immature Gran % (Auto) 0.3 % Neut % (Auto) 64.0 % Lymph % (Auto) 19.8 % Swain % (Auto) 10.3 % Eos % (Auto) 5.1 % Baso % (Auto) 0.5 % Immature Gran # (Auto) 0.02 (0.00-0.02) K/uL Neut # (Auto) 3.92 (1.4-6.5) K/uL Lymph # (Auto) 1.21 (1.2-3.4) K/uL Swain # (Auto) 0.63 H (0.11-0.59) K/uL Eos # (Auto) 0.31 (0-0.5) K/uL Baso # (Auto) 0.03 (0-0.2) K/uL RBC Morphology Unremarkable Peripher Smr Path Cons Pending D-Dimer (0-500) ug/L FEU Sodium (136-145) mmol/L Potassium (3.5-5.1) mmol/L Chloride (98-107) mmol/L Carbon Dioxide (21-32) mmol/L Anion Gap (3-11) BUN (7-18) mg/dl Creatinine (0.6-1.2) mg/dl Est Cr Clr Drug Dosing ml/min Est GFR ( Amer) Est GFR (Non-Af Amer) BUN/Creatinine Ratio (10-20) Glucose (70-99) mg/dl Calcium (8.5-10.1) mg/dl Iron (35-150) mcg/dl TIBC (250-450) mcg/dl Transferrin (200-360) mg/dl Transferrin % Sat (15-50) % Total Bilirubin (0.2-1) mg/dl AST (15-37) U/L ALT (12-78) U/L Alkaline Phosphatase (45-117) U/L Troponin I (0-0.045) ng/ml Total Protein (6.4-8.2) gm/dl Albumin (3.4-5.0) gm/dl Globulin (2.5-4.0) gm/dl Albumin/Globulin Ratio (0.9-2) Blood Type Blood Type Recheck Antibody Screen Crossmatch (1) Anemia Anemia type: unspecified type Qualified Code(s): D64.9 - Anemia, unspecified
[2019-04-11 12:11] LABS: Hematocrit (blood only) 28.3 % (37-47); Hemoglobin 9.1 g/dL (12.0-16.0)
--- NOTE | 2019-04-11 12:46 | Cardiology Consultation ---
Date of Consultation April 11, 2019 Assessment & Plan (1) Nonsustained ventricular tachycardia: The patient had an asymptomatic 12 beat episode of a wide complex tachycardia which could be nonsustained ventricular tachycardia or perhaps a brief atrial arrhythmia with aberrancy. In any event, she appears to have preserved LV systolic function which suggests an overall good prognosis. She describes being evaluated for coronary artery disease several months ago or if she truly underwent stress testing at that time without evidence of coronary disease and this also is favorable. She did have some symptoms recently consistent with angina, but this was in the setting of severely reduced h emoglobin level. I do not believe she requires additional stress testing currently provided she does not have more symptoms of was to chest pain onset her hemoglobin has normalized. (2) Chest pain: She did have some chest heaviness with exertion. This was in the setting of a hemoglobin around 6. She does have moderate calcification on her CT scan suggestive of coronary disease, but reportedly had a normal stress test a few months ago. Additionally, until recently she has not had the symptoms which suggest that her anemia is the primary precipitant. Once her hemoglobin has normalized we can have a better evaluation of recurrent symptoms. For current chest pain in a setting with normal hemoglobin repeat stress testing could be considered. History of Present Illness Reason for Consultation: Ventricular tachycardia Requesting Physician: Emiliana Attending Physician: Tawanna Hopson MD History of Present Illness Patient is a 68-year-old woman without a known history of cardiac disease who was admitted to [facility] with symptomatic anemia. The patient states that for several days leading up to her admission she noticed high heart rates associated with exertion. She also had an element of dyspnea and some mild chest heaviness with activity. She has not report significant dizziness or lightheadedness. She has not suffered syncope. Initially she presented to an outpatient urgent care center where she is found to be severely anemic. She was sent to our facility for evaluation. Last evening she underwent transfusion of 2 units of blood. This morning she is feeling well. The patient carries a diagnosis of congestive heart failure. She states that approximately 2 years ago during the course of a pneumonia she was told she had an element of heart failure and required some diuresis. However, subsequent cardiac evaluation did not reveal any significant cardiac abnormalities and a more recent evaluation performed after a knee surgery did not reveal any evidence of cardiac disease. Patient states that subsequent to a right total knee arthroplasty in September of 2018 she suffered 2 syncopal episodes. This prompted both stress testing and echocardiography. She states that these evaluations are normal and she was told that she did not have any cardiac disease. The patient has been active but not to the same intensity as she was prior to her knee replacement. She recently came back from a cruise where he did participate in all activities including snorkeling and walking. Generally speaking she has not had symptoms of chest discomfort or breathing difficulty. She describes rare and fleeting palpitations but nothing sustained like she has had recently. Outside of the 2 single episode subsequent to her knee surgery she cannot recall any other episodes of syncope. Allergies Allergy/AdvReac Type Severity Reaction Status Date / Time bupropion [From Wellbutrin] Allergy Seizure Unverified 04/10/19 10:43 Beta-Blockers AdvReac Dizziness Unverified 04/10/19 10:43 (Beta-Adrenergic Bloc ceftriaxone [From Rocephin] AdvReac Rash Unverified 04/10/19 10:43 Home Medications Home Medications Medication Instructions Recorded Confirmed Type diltiazem HCl [Cardizem LA] 300 mg PO DAILY 04/10/19 04/10/19 History duloxetine [Cymbalta] 30 mg PO BID 04/10/19 04/10/19 History famotidine 40 mg PO DAILY 04/10/19 04/10/19 History gabapentin [Neurontin] 600 mg PO TID 04/10/19 04/10/19 History lactobacillus combination no.4 3,000 mmu cells PO DAILY 04/10/19 04/10/19 History [Probiotic] leflunomide 10 mg PO DAILY 04/10/19 04/10/19 History lisinopril 40 mg PO DAILY 04/10/19 04/10/19 History meloxicam [Mobic] 7.5 mg PO BID 04/10/19 04/10/19 History mirtazapine [Remeron] 30 mg PO HS 04/10/19 04/10/19 History prednisone 5 mg PO DAILY 04/10/19 04/10/19 History ropinirole [Requip] 0.5 mg PO BID 04/10/19 04/10/19 History trazodone 0 mg PO HS PRN 04/10/19 04/10/19 History triamterene-hydrochlorothiazid 1 cap PO DAILY 04/10/19 04/10/19 History [Dyazide] Patient History Medical History History of substance abuse Elevated d-dimer Anemia (Acute) Hypertension (Chronic) Pneumonia (Acute) Restless leg syndrome (Chronic) Opiate addiction (Resolved) Inflammatory arthritis (Chronic) Mixed connective tissue disease (Chronic) Surgical History History of knee replacement (Resolved) Family History Other Atrial fibrillation Social History Preferred Language: Kuwaiti Communication Ability: Effective Beliefs That Will Affect Care: None marital status: Current Living Situation: Other Current Living Situation Comment: living with friend current occupational status: retired 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 She denies any melena or bright red blood per rectum. She has been eating well. She denies any abdominal discomfort. She has some mild lower extremity edema which is fairly chronic in nature. Physical Exam Physical Exam: She is alert and oriented x3. Mood affect appear normal. She answered all questions appropriately. HEENT: Sclerae are anicteric. Pupils are equal and reactive to light and accommodation. Extraocular movements were intact. Neuro: Cranial nerves intact Neck: Examination of the submandibular region did not reveal any significant lymphadenopathy. Carotids are palpable bilaterally and free of bruits on auscultation. There was no evidence of jugular venous distention. The thyroid was not enlarged. Lungs: Lungs are clear to auscultation bilaterally. There are no rales wheezes or rhonchi. She has normal respiratory effort without use of accessory muscles. There is normal pulmonary excursion. Cardiac: The rhythm was regular. S1 and S2 were normal. There are no murmurs on examination. The PMI was not markedly displaced on palpation. Abdomen: The abdomen was soft and nontender. Extremities: Patient has bilateral radial pulses that are equal in intensity. There is no evidence cyanosis or clubbing. Mild peripheral edema bilaterally. Skin: There are no rashes noted on examination today. Results & Data Vital Signs (Past 12 Hours) Vital Signs Temp Pulse Pulse Resp BP Pulse Ox 04/11/19 12:07 37.2 C 92 H 04/11/19 12:02 132 H 22 132/88 97 04/11/19 11:51 37.7 C H 100 H 22 157/76 H 95 04/11/19 07:45 37.2 C 84 16 139/79 97 04/11/19 07:31 92 H 04/11/19 02:57 36.8 C 89 18 144/77 H 95 Laboratory Results Abnormal Lab Results 04/10/19 04/10/19 04/10/19 09:57 11:36 13:12 WBC RBC Hgb Hct MCV MCH MCHC RDW Std Deviation RDW Coeff of Jerilyn Plt Count MPV Immature Gran % (Auto) Neut % (Auto) Lymph % (Auto) Campbell % (Auto) Eos % (Auto) Baso % (Auto) Immature Gran # (Auto) Neut # (Auto) Lymph # (Auto) Campbell # (Auto) Eos # (Auto) Baso # (Auto) Peripher Smr Path Cons Cancelled Sodium Potassium Chloride Carbon Dioxide Anion Gap BUN Creatinine Est Cr Clr Drug Dosing Est GFR ( Amer) Est GFR (Non-Af Amer) BUN/Creatinine Ratio Glucose Calcium Iron TIBC Transferrin Transferrin % Sat Blood Type O Positive Antibody Screen NEGATIVE Crossmatch See Detail 04/10/19 04/10/19 04/10/19 13:12 13:12 13:12 WBC RBC Hgb Hct MCV MCH MCHC RDW Std Deviation RDW Coeff of Jerilyn Plt Count MPV Immature Gran % (Auto) Neut % (Auto) Lymph % (Auto) Campbell % (Auto) Eos % (Auto) Baso % (Auto) Immature Gran # (Auto) Neut # (Auto) Lymph # (Auto) Campbell # (Auto) Eos # (Auto) Baso # (Auto) Peripher Smr Path Cons Sodium Potassium Chloride Carbon Dioxide Anion Gap BUN Creatinine Est Cr Clr Drug Dosing Est GFR ( Amer) Est GFR (Non-Af Amer) BUN/Creatinine Ratio Glucose Calcium Iron 7 L 6 L TIBC 445 Transferrin 342 Transferrin % Sat 1 L Blood Type Antibody Screen Crossmatch 04/10/19 04/11/19 04/11/19 18:04 00:08 05:19 WBC 5.48 RBC 3.24 L Hgb 6.9 L* 8.4 L 8.4 L Hct 21.9 L 26.0 L 26.2 L MCV 80.9 MCH 25.9 MCHC 32.1 RDW Std Deviation 42.2 RDW Coeff of Jerilyn 14.1 Plt Count 418 H MPV 8.4 Immature Gran % (Auto) 0.2 Neut % (Auto) 51.9 Lymph % (Auto) 25.7 Campbell % (Auto) 12.4 Eos % (Auto) 9.1 Baso % (Auto) 0.7 Immature Gran # (Auto) 0.01 Neut # (Auto) 2.84 Lymph # (Auto) 1.41 Campbell # (Auto) 0.68 H Eos # (Auto) 0.50 Baso # (Auto) 0.04 Peripher Smr Path Cons Sodium Potassium Chloride Carbon Dioxide Anion Gap BUN Creatinine Est Cr Clr Drug Dosing Est GFR ( Amer) Est GFR (Non-Af Amer) BUN/Creatinine Ratio Glucose Calcium Iron TIBC Transferrin Transferrin % Sat Blood Type Antibody Screen Crossmatch 04/11/19 04/11/19 05:19 12:01 WBC RBC Hgb 9.1 L Hct 28.3 L MCV MCH MCHC RDW Std Deviation RDW Coeff of Jerilyn Plt Count MPV Immature Gran % (Auto) Neut % (Auto) Lymph % (Auto) Campbell % (Auto) Eos % (Auto) Baso % (Auto) Immature Gran # (Auto) Neut # (Auto) Lymph # (Auto) Campbell # (Auto) Eos # (Auto) Baso # (Auto) Peripher Smr Path Cons Sodium 142 Potassium 3.8 Chloride 110 H Carbon Dioxide 27 Anion Gap 5.0 BUN 12 Creatinine 0.79 Est Cr Clr Drug Dosing 68.0 Est GFR ( Amer) 87.9 Est GFR (Non-Af Amer) 75.8 BUN/Creatinine Ratio 15.4 Glucose 88 Calcium 8.9 Iron TIBC Transferrin Transferrin % Sat Blood Type Antibody Screen Crossmatch Diagnostic Findings Preliminary echocardiogram report reveals preserved LV systolic function without severe valvular disease. She does have some senile septal hypertrophy CT PE protocol and I really evidence of pulmonary embolus. She did have moderate coronary calcifications. ECG Additional Comments: Normal EKG
[2019-04-11] MEDS ORDERED: LIDOCAINE HCL 2% 2 ML VIAL/AMP(20MG/ML) INFIL ONE (12:48)
[2019-04-11] MEDS ORDERED: PROPOFOL IV EMULSION 10 MG/ML 20 ML VIAL IV ONE ×2 (12:48→13:43)
--- NOTE | 2019-04-11 13:06 | Anesthesiology Consultation ---
Date of Service April 11, 2019 Assessment & Plan (1) Encounter for pre-operative examination: Chart Review Chart Review: Acceptable Risk for Surgery and Patient NOT seen in Pre Admission Testing Consults Requested none ASA ASA3 Proposed Anesthesia Anesthesia Type: MAC Risk / Benefits Reviewed With: PT / POA / Parent / Guardian, Accepts Plan and Informed Consent Obtained History Surgery Operation Date: 04/11/19 09:20 Proposed Procedures p Esophagogastroduodenoscopy Dr Pedroza - Cesar Pedroza MD Height/Weight Height: 5 ft 5 in Weight: 77.1 kg Allergies Allergy/AdvReac Type Severity Reaction Status Date / Time bupropion [From Wellbutrin] Allergy Seizure Unverified 04/10/19 10:43 Beta-Blockers AdvReac Dizziness Unverified 04/10/19 10:43 (Beta-Adrenergic Bloc ceftriaxone [From Rocephin] AdvReac Rash Unverified 04/10/19 10:43 Medications Home Medications Medication Instructions Recorded Confirmed Last Taken diltiazem HCl [Cardizem LA] 300 mg PO DAILY 04/10/19 04/10/19 04/10/19 duloxetine [Cymbalta] 30 mg PO BID 04/10/19 04/10/19 04/10/19 famotidine 40 mg PO DAILY 04/10/19 04/10/19 04/10/19 gabapentin [Neurontin] 600 mg PO TID 04/10/19 04/10/19 04/10/19 lactobacillus combination no.4 3,000 mmu cells PO DAILY 04/10/19 04/10/19 Unknown [Probiotic] leflunomide 10 mg PO DAILY 04/10/19 04/10/19 04/10/19 lisinopril 40 mg PO DAILY 04/10/19 04/10/19 04/10/19 meloxicam [Mobic] 7.5 mg PO BID 04/10/19 04/10/19 Unknown mirtazapine [Remeron] 30 mg PO HS 04/10/19 04/10/19 Unknown prednisone 5 mg PO DAILY 04/10/19 04/10/19 04/10/19 ropinirole [Requip] 0.5 mg PO BID 04/10/19 04/10/19 04/10/19 trazodone 0 mg PO HS PRN 04/10/19 04/10/19 Unknown triamterene-hydrochlorothiazid 1 cap PO DAILY 04/10/19 04/10/19 04/10/19 [Dyazide] Active Medications Generic Name Dose Route Start Last Admin Trade Name Freq PRN Reason Stop Dose Admin Acetaminophen 650 mg 04/10/19 14:33 04/11/19 09:38 Tylenol PO 05/10/19 14:32 650 mg Q4H PRN Administration Pain or Fever Diltiazem HCl 300 mg 04/11/19 09:00 04/11/19 08:04 Cardizem Cd PO 05/11/19 08:59 300 mg DAILY TIMBO Administration Duloxetine HCl 30 mg 04/10/19 21:00 04/11/19 08:05 Cymbalta PO 05/10/19 20:59 30 mg BID TIMBO Administration Famotidine 40 mg 04/11/19 09:00 04/11/19 08:05 Pepcid PO 05/11/19 08:59 40 mg DAILY TIMBO Administration Gabapentin 600 mg 04/10/19 16:00 04/11/19 08:05 Neurontin PO 05/10/19 15:59 600 mg TID TIMBO Administration Pantoprazole Sodium 40 mg/ 10 mls @ 5 mls/min 04/10/19 13:30 04/11/19 08:06 Syringe IV 05/10/19 13:29 5 mls/min BID@0900,2100 TIMBO Administration Ioversol 97 ml 04/10/19 11:31 04/10/19 11:31 Optiray 320 125ml IV 04/14/19 11:30 97 ml ONCE PRN Administration Interaction Checking Lactobacillus Acidophilus 2 tab 04/10/19 17:00 04/11/19 13:02 Floranex PO 05/10/19 16:59 Not Given TIDM TIMBO Leflunomide 10 mg 04/11/19 09:00 04/11/19 08:05 Arava PO 05/11/19 08:59 10 mg DAILY TIMBO Administration Lisinopril 40 mg 04/11/19 09:00 04/11/19 08:05 Zestril PO 05/11/19 08:59 40 mg DAILY TIMBO Administration Mirtazapine 30 mg 04/10/19 21:00 04/10/19 20:47 Remeron PO 05/10/19 20:59 30 mg HS TIMBO Administration Prednisone 5 mg 04/11/19 09:00 04/11/19 08:05 Prednisone PO 05/11/19 08:59 5 mg DAILY TIMBO Administration Ropinirole HCl 0.5 mg 04/10/19 21:00 04/11/19 08:05 Requip PO 05/10/19 20:59 0.5 mg BID TIMBO Administration Triamterene/HCTZ 1 cap 04/11/19 09:00 04/11/19 08:05 Dyazide 37.5/25mg PO 05/11/19 08:59 1 cap DAILY TIMBO Administration NPO Date Last Intake of Fluids: 04/11/19 Time Last Intake of Fluids: 10:00 Date Last Intake of Solids: 04/09/19 Time Last Intake of Solids: 18:00 Past Medical History Medical History History of substance abuse Elevated d-dimer Anemia (Acute) Hypertension (Chronic) Pneumonia (Acute) Restless leg syndrome (Chronic) Opiate addiction (Resolved) Inflammatory arthritis (Chronic) Mixed connective tissue disease (Chronic) Exercise / Class Metabolic Activity II 4-5 Yardwork/Stairs/Walk up hill Past Family History Family History Other Atrial fibrillation Past Surgical History Surgical History History of knee replacement (Resolved) Past Anesthesia History No Hx of Anesthesia Complications and No Family Hx of Anesthesia Complications History of PONV No Hx of PONV and No Hx of Motion Sickness Social History Smoking Status: Former smoker Smoking End Date: 1984 Hx Alcohol Use: Yes Hx Substance Use: Yes (Opioid dependance, EtOH dependance) substance use type: opiates Last Used Substance Other:: 9 mths ago rehab Physical Exam Vital Signs Last Vital Signs Temp 37.2 C 04/11/19 12:49 Pulse 88 04/11/19 12:49 Resp 20 04/11/19 12:49 BP 129/77 04/11/19 12:49 Pulse Ox 95 04/11/19 12:49 ENMT Mouth: no dentition abnormality Thyromental Distance: > or= 3.5 Finger Breadths Mallampati Class: II Neck normal visual inspection Respiratory normal respiratory effort Auscultation: lungs clear to auscultation bilaterally Cardiovascular Rate/Rhythm: regular rate and regular rhythm Psychiatric Orientation: alert
--- NOTE | 2019-04-11 13:53 | GI REPORT ---
Patient Name: Luis Miguel Emerson Procedure Date: 04/11/2019 12:57 PM Date of : 1950 Admit Type: Inpatient Age: 68 Gender: Female Attending MD: Cesar Pedroza MD Procedure: Upper GI endoscopy Providers: Cesar Pedroza MD Referring MD: Tawanna Hopson Md Indications: Anemia Medicines: Monitored Anesthesia Care Complications: No immediate complications. Estimated Blood Loss: Estimated blood loss: none. Procedure: Pre-Anesthesia Assessment: - Prior to the procedure, a History and Physical was performed, and patient medications and allergies were reviewed. The patient is competent. The risks and benefits of the procedure and the sedation options and risks were discussed with the patient. All questions were answered and informed consent was obtained. Patient identification and proposed procedure were verified by the physician and the nurse in the procedure room. Mental Status Examination: alert and oriented. Airway Examination: normal oropharyngeal airway and neck mobility. Respiratory Examination: clear to auscultation. CV Examination: normal. ASA Grade Assessment: III - A patient with severe systemic disease. After reviewing the risks and benefits, the patient was deemed in satisfactory condition to undergo the procedure. The anesthesia plan was to use monitored anesthesia care (MAC). Immediately prior to administration of medications, the patient was re-assessed for adequacy to receive sedatives. The heart rate, respiratory rate, oxygen saturations, blood pressure, adequacy of pulmonary ventilation, and response to care were monitored throughout the procedure. The physical status of the patient was re-assessed after the procedure. After obtaining informed consent, the endoscope was passed under direct vision. Throughout the procedure, the patient's blood pressure, pulse, and oxygen saturations were monitored continuously. The Endoscope was introduced through the mouth, and advanced to the second part of duodenum. The upper GI endoscopy was accomplished without difficulty. The patient tolerated the procedure well. Findings: Abnormal motility was noted in the esophagus. The cricopharyngeus was abnormal. There is spasticity of the esophageal body. The distal esophagus/lower esophageal sphincter is open. A large hiatal hernia was found. The proximal extent of the gastric folds (end of tubular esophagus) was 30 cm from the incisors. The hiatal narrowing was 35 cm from the incisors. The Z-line was 30 cm from the incisors. The entire examined stomach was normal. The duodenal bulb and second portion of the duodenum were normal. A single medium angioectasia without bleeding was found in the second portion of the duodenum. Vaporization for bleeding prevention using argon plasma was successful. To prevent bleeding post-maneuver, two hemostatic clips were successfully placed (MR conditional). There was no bleeding at the end of the procedure. Impression: - Abnormal esophageal motility. - Large hiatal hernia. - Normal stomach. - Normal duodenal bulb and second portion of the duodenum. 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 Treated with argon plasma coagulation (APC). Clips (MR conditional) were placed. - No specimens collected. Recommendation: - Return patient to [facility] for ongoing care. - Perform a colonoscopy tomorrow. - To visualize the small bowel, perform video capsule endoscopy as outpatient. Cesar Pedroza MD 04/11/2019 1:53:07 PM This report has been signed electronically. Note Initiated On: 04/11/2019 12:57 PM Number of Addenda: 0 I attest to the content of the Intraoperative Record and orders documented therein, exceptions below {[id number]}
--- NOTE | 2019-04-11 14:51 | Anesthesiology Progress Note ---
Date of Service April 11, 2019 Anesthesia Post Procedure Vital Signs Vital Signs: Temp Pulse Pulse Resp BP BP Pulse Ox 04/11/19 14:23 79 18 116/71 97 04/11/19 14:08 78 18 131/70 97 04/11/19 13:53 80 16 124/60 96 04/11/19 12:49 37.2 C 88 20 129/77 95 04/11/19 12:02 132 H 22 132/88 97 04/11/19 11:51 37.7 C H 100 H 22 157/76 H 95 04/11/19 07:45 37.2 C 84 16 139/79 97 04/11/19 07:31 92 H 04/11/19 02:57 36.8 C 89 18 144/77 H 95 04/11/19 00:15 37 C 93 H 18 141/74 H 96 04/10/19 22:25 37.2 C 94 H 18 138/82 94 04/10/19 21:25 37.3 C 93 H 16 158/81 H 94 04/10/19 20:25 37.3 C 84 16 146/79 H 96 04/10/19 19:25 37.3 C 87 16 137/73 96 04/10/19 18:55 37.5 C 85 16 145/74 H 97 04/10/19 18:40 37.1 C 92 H 16 151/69 H 97 04/10/19 18:37 37.3 C 91 H 18 151/69 H 97 04/10/19 16:25 37.0 C 92 H 16 142/76 H 97 04/10/19 15:25 37.1 C 91 H 16 128/72 97 04/10/19 15:00 96 H 17 138/65 98 Transfer of Care Handoff Completed per policy Notes Mental Status: alert / awake / arousable Patient Amnestic to Procedure: Yes Nausea / Vomiting: adequately controlled Pain: adequately controlled Airway Patency, RR, SpO2: stable & adequate BP & HR: stable & adequate Hydration State: stable & adequate Anesthetic Complications: no major complications apparent
[2019-04-11] MEDS ORDERED: GABAPENTIN 300 MG CAP PO STA (16:29)
[2019-04-11] MEDS ORDERED: LAVAGE SOLUTION 4000ML PO SCH (16:30)
--- NOTE | 2019-04-11 16:33 | Hospitalist Progress Note ---
Date of Service April 11, 2019 Assessment & Plan (1) Anemia: Patient presented with a hemoglobin of 6.1 with a guaiac positive stool Prior colonoscopy 6 months ago with benign adenoma and diverticulosis Transfused 2 units PRBCs on admission and hgb now improved and stable at 8.4 MCV 81.6 -Fe studies show severe Fe deficiency with serum Fe only 6 and transferring saturation only 1%, ferritin was not checked prior to transfusion Consult gastroenterology -appreciated EGD with: Abnormal esophageal motility, large hiatal hernia, normal stomach and duodenum except a single non-bleeding angioectasia in the duodenum which was txd with APC and a clip -plan for colonoscopy tomorrow and then video capsule endoscopy as outpt to look for other angioectasias -continue Pantoprazole 40 mg IV twice daily -Continue home dose of famotidine orally -holding all NSAIDs from home to include naproxen, meloxicam -continue liquids diet today and NPO after midnight for c-scope tomorrow -will give IV iron infusion in the AM prior to discharge--> will have to hold off on po Fe until after VCE -follow CBC (2) Mixed connective tissue disease: Follows with rheumatology as an outpatient With a h/o spinal rods, replacement hip, replacement knees On scheduled naproxen, meloxicam, and prednisone as an outpatient but NSAIDs on hold here for GI bleeding Continue outpatient management -continue leflunomide 10mg daily -replace pain control with increased dose of gabapentin to 600mg/900mg/900mg (3) Hypertension: BPs stable Continue home meds of diltiazem, lisinopril, and Dyazide (4) Elevated d-dimer: Doppler LEs neg for DVT CTA of the chest negative for pulmonary embolus Unclear reason why elevated (5) History of substance abuse: History of opiate dependence secondary to chronic pain for mixed connective tissue disorder * Completed rehab program 9 months ago * Do not use opiates for pain control History of ethanol abuse * Previous heavy use of wine * No ethanol intake for 9 months (6) Nonsustained ventricular tachycardia: 12 beat run vs SVT with abberrancey ECHO with preserved LV function here Asymptomatic Appreciate Cardiology consultation-no further eval needs to be done currently (7) GI bleed: as above, secondary to duodenum angioectasia and there may be others in the gut--> colonoscopy tomorrow and VCE as outpt (8) Restless leg syndrome: continue Requip (9) Thrombocytosis: reactive in the 500s secondary to severe iron deficiency -improved today after PRBC transfusion -follow CBC (10) DVT prophylaxis: No chemical prophylaxis secondary to profound anemia and requirement for blood transfusion Knee-high CHANDLER hose Knee-high SCDs Ambulate as tolerated Dispo-remain on tele overnight , possible dc to [facility] tomorrow if Hgb stable and colonoscopy without serious findings Subjective Pt feeling better. Denies lightheadedness or dizziness, no CP or OSB. SHe has ambulated the halls since her EGD and feels better overall. Tele with NSR and a 12 beat run of VT vs SVT with aberrancy that was asymptomatic. Discussed case with GI Pt has not had any melena or BRBPR. No N/V, no abd pain. Is reporting her lower back is really starting to ache due to not getting her usual NSAIDs and declines any opioids. Review of Systems Review of Systems: All systems reviewed & are unremarkable except as noted in HPI & below Physical Exam Constitutional: WD/WN, vitals as above Eyes: PERRL, conjunctivae normal, anicteric sclerae ENMT: external ear and nose normal, oropharynx normal Neck: trachea midline, no thyromegaly Respiratory: normal respiratory effort, lungs clear to auscultation Cardiovascular: RRR, no murmur, no edema Gastrointestinal (Abdomen): normal bowel sounds, soft, nontender, no hepatosplenomegaly Musculoskeletal: Extremities: extremities normal to inspection; no cyanosis and no clubbing Skin: no rashes, warm and dry Neurologic: moves all extremities and awake; no focal motor deficits Psychiatric: A+Ox3, euthymic affect Results & Data Vital Signs (Past 12 Hours) Vital Signs Temp Pulse Pulse Resp BP Pulse Ox 04/11/19 14:23 79 18 116/71 97 04/11/19 14:08 78 18 131/70 97 04/11/19 13:53 80 16 124/60 96 04/11/19 12:49 37.2 C 88 20 129/77 95 04/11/19 12:02 132 H 22 132/88 97 04/11/19 11:51 37.7 C H 100 H 22 157/76 H 95 04/11/19 07:45 37.2 C 84 16 139/79 97 04/11/19 07:31 92 H Laboratory Results 05/20/19 05/20/19 05/20/19 Range/Units 12:01 05:19 05:19 WBC 5.48 (4.8-10.8) K/uL RBC 3.24 L (4.2-5.4) M/uL Hgb 9.1 L 8.4 L (12.0-16.0) g/dL Hct 28.3 L 26.2 L (37-47) % MCV 80.9 (80-100) fL MCH 25.9 (25-34) pg MCHC 32.1 (32-36) g/dL RDW Std Deviation 42.2 (36.4-46.3) fL RDW Coeff of Jerilyn 14.1 (11.5-14.5) % Plt Count 418 H (130-400) K/uL MPV 8.4 (7.4-10.4) fL Immature Gran % (Auto) 0.2 % Neut % (Auto) 51.9 % Lymph % (Auto) 25.7 % [place] % (Auto) 12.4 % Eos % (Auto) 9.1 % Baso % (Auto) 0.7 % Immature Gran # (Auto) 0.01 (0.00-0.02) K/uL Neut # (Auto) 2.84 (1.4-6.5) K/uL Lymph # (Auto) 1.41 (1.2-3.4) K/uL [place] # (Auto) 0.68 H (0.11-0.59) K/uL Eos # (Auto) 0.50 (0-0.5) K/uL Baso # (Auto) 0.04 (0-0.2) K/uL Peripher Smr Path Cons Sodium 142 (136-145) mmol/L Potassium 3.8 (3.5-5.1) mmol/L Chloride 110 H (98-107) mmol/L Carbon Dioxide 27 (21-32) mmol/L Anion Gap 5.0 (3-11) BUN 12 (7-18) mg/dl Creatinine 0.79 (0.6-1.2) mg/dl Est Cr Clr Drug Dosing 68.0 ml/min Est GFR ( Amer) 87.9 Est GFR (Non-Af Amer) 75.8 BUN/Creatinine Ratio 15.4 (10-20) Glucose 88 (70-99) mg/dl Calcium 8.9 (8.5-10.1) mg/dl Crossmatch 04/11/19 04/10/19 04/10/19 Range/Units 00:08 11:36 09:57 WBC (4.8-10.8) K/uL RBC (4.2-5.4) M/uL Hgb 8.4 L (12.0-16.0) g/dL Hct 26.0 L (37-47) % MCV (80-100) fL MCH (25-34) pg MCHC (32-36) g/dL RDW Std Deviation (36.4-46.3) fL RDW Coeff of Jerilyn (11.5-14.5) % Plt Count (130-400) K/uL MPV (7.4-10.4) fL Immature Gran % (Auto) % Neut % (Auto) % Lymph % (Auto) % [place] % (Auto) % Eos % (Auto) % Baso % (Auto) % Immature Gran # (Auto) (0.00-0.02) K/uL Neut # (Auto) (1.4-6.5) K/uL Lymph # (Auto) (1.2-3.4) K/uL [place] # (Auto) (0.11-0.59) K/uL Eos # (Auto) (0-0.5) K/uL Baso # (Auto) (0-0.2) K/uL Peripher Smr Path Cons Sodium (136-145) mmol/L Potassium (3.5-5.1) mmol/L Chloride (98-107) mmol/L Carbon Dioxide (21-32) mmol/L Anion Gap (3-11) BUN (7-18) mg/dl Creatinine (0.6-1.2) mg/dl Est Cr Clr Drug Dosing ml/min Est GFR ( Amer) Est GFR (Non-Af Amer) BUN/Creatinine Ratio (10-20) Glucose (70-99) mg/dl Calcium (8.5-10.1) mg/dl Crossmatch See Detail Diagnostic Findings EGD: Impression: - Abnormal esophageal motility. - Large hiatal hernia. - Normal stomach. - Normal duodenal bulb and second portion of the duodenum. 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 Treated with argon plasma coagulation (APC). Clips (MR conditional) were placed. (1) Anemia Anemia type: unspecified type Qualified Code(s): D64.9 - Anemia, unspecified (2) GI bleed GI bleed type/associated pathology: unspecified gastrointestinal hemorrhage type Qualified Code(s): K92.2 - Gastrointestinal hemorrhage, unspecified
[2019-04-11] MEDS: GABAPENTIN 300 MG CAP PO SCH (20:20)
[2019-04-11] MEDS: MIRTAZAPINE TAB 15 MG TAB PO SCH (20:21)
[2019-04-11] MEDS: ACETAMINOPHEN 500 MG TAB PO SCH (21:29)
[2019-04-12] MEDS: ACETAMINOPHEN 500 MG TAB PO SCH ×2 (03:06→13:50)
[2019-04-12 05:47] LABS: Basophils # (auto) 0.03 K/uL (0-0.2); Basophils % (auto) 0.5 %; Eosinophils # (auto) 0.39 K/uL (0-0.5); Eosinophils % (auto) 6.2 %; Hematocrit (blood only) 26.9 % (37-47); Hemoglobin 8.5 g/dL (12.0-16.0); Immature Granulocytes # (auto) 0.01 K/uL (0.00-0.02); Immature Granulocytes % (auto) 0.2 %; Lymphocytes # (auto) 1.61 K/uL (1.2-3.4); Lymphocytes % (auto) 25.8 %; Mean Corpuscular Hgb Conc 31.6 g/dL (32-36); Monocytes # (auto) 0.72 K/uL (0.11-0.59); Monocytes % (auto) 11.5 %; Neutrophils # (auto) 3.49 K/uL (1.4-6.5); Neutrophils % (auto) 55.8 %; Platelet Count 357 K/uL (130-400); RDW Coefficient of Variation 14.3 % (11.5-14.5); RDW Standard Deviation 42.7 fL (36.4-46.3); Red Blood Count 3.32 M/uL (4.2-5.4); White Blood Count 6.25 K/uL (4.8-10.8)
[2019-04-12 06:24] LABS: BUN Creatinine Ratio 12.7 (10-20); Creatinine Clr Calc Pharmacy 69.8 ml/min; Est GFR (African American) 90.7; Est GFR (Non-African American) 78.2; Potassium 3.5 mmol/L (3.5-5.1)
--- NOTE | 2019-04-12 07:54 | Anesthesiology Progress Note ---
Date of Service April 12, 2019 Anesthesia Post Procedure Vital Signs Vital Signs: Temp Pulse Pulse Resp BP Pulse Ox 04/12/19 07:05 36.9 C 89 16 159/88 H 95 04/12/19 03:03 36.9 C 84 18 140/72 99 04/12/19 00:58 74 04/11/19 19:37 37.2 C 74 18 154/80 H 98 04/11/19 15:35 37.2 C 80 18 124/70 97 04/11/19 14:23 79 18 116/71 97 04/11/19 14:08 78 18 131/70 97 04/11/19 13:53 80 16 124/60 96 04/11/19 12:49 37.2 C 88 20 129/77 95 04/11/19 12:02 132 H 22 132/88 97 04/11/19 11:51 37.7 C H 100 H 22 157/76 H 95 Pain Intensity Medial Back: Pain Intensity: 0 Notes Mental Status: alert / awake / arousable Patient Amnestic to Procedure: Yes Nausea / Vomiting: adequately controlled Pain: adequately controlled Airway Patency, RR, SpO2: stable & adequate BP & HR: stable & adequate Hydration State: stable & adequate Anesthetic Complications: no major complications apparent
--- NOTE | 2019-04-12 08:53 | Gastroenterology Progress Note ---
Date of Service April 12, 2019 Assessment & Plan (1) Anemia: 68 year old female admitted w/ symptomatic anemia, HGB 6.1 w/o bump in BUN. Has had appropriate response to 2 unit RBC w/ HGB 8.4 this AM. Denies any black/bloody stools but does have risk factors for UGI blood using PO steroids, aleva, mobic daily. She reports a recent c-scopy in [place] for a positive cologuard which showed a large polyp - NPO - Colonoscopy today - Trend H&H - Monitor and document all GI ouptut - Transfuse PRN Thank you for allowing us to participate in the care of this patient. Please call with any acute changes, questions or concerns. Please see addendum below with additional recommendation from my supervising physician. Supervising Physician Co-Signing Physician Notes I performed a history and physical examination of the patient, including specifically on physical exam - soft, nontender abdomen. I have discussed the patient's management with Andria. Please refer to the nurse practitioner's note for the documented findings and plan of care. Colonoscopy today Subjective Pt was seen and evaluated No acute events noted Tolerated prep Clear bowels No black or bloody stools No abd pain, fever, chills, CP, SOB. Review of Systems Constitutional: no fever and no chills Respiratory: no cough and no dyspnea Cardiovascular: no chest pain and no radiating jaw, neck or arm pain Physical Exam Constitutional: WD/WN, vitals as above Respiratory: normal respiratory effort, lungs clear to auscultation Cardiovascular: RRR, no murmur, no edema Gastrointestinal (Abdomen): normal bowel sounds, soft, nontender, no hepatosplenomegaly Results & Data Vital Signs (Past 12 Hours) Vital Signs Temp Pulse Pulse Resp BP Pulse Ox 04/12/19 07:05 36.9 C 89 16 159/88 H 95 04/12/19 03:03 36.9 C 84 18 140/72 99 04/12/19 00:58 74 (1) Anemia Anemia type: unspecified type Qualified Code(s): D64.9 - Anemia, unspecified
[2019-04-12] MEDS ORDERED: IRON SUCROSE 100 MG in 0.9 % SODIUM CHLORIDE 100 ML IV SCH (09:00)
[2019-04-12] MEDS ORDERED: GABAPENTIN 600 MG TAB PO SCH (09:00)
[2019-04-12] MEDS: LEFLUNOMIDE 10 MG TAB PO SCH (09:17)
[2019-04-12] MEDS: GABAPENTIN 300 MG CAP PO SCH ×2 (09:17→13:50)
[2019-04-12] MEDS: LISINOPRIL 40 MG TAB PO SCH (09:17)
[2019-04-12] MEDS: FAMOTIDINE 20 MG TAB PO SCH (09:17)
[2019-04-12] MEDS: TRIAMTERENE/HCTZ 37.5/25MG CAP PO SCH (09:18)
[2019-04-12] MEDS: ROPINIROLE HCL 0.25 MG TABLET PO SCH (09:18)
[2019-04-12] MEDS: DULOXETINE HCL 30 MG CAP PO SCH (09:18)
[2019-04-12] MEDS: dilTIAZem HCL 300 MG CAPCR PO SCH (09:18)
[2019-04-12] MEDS: PANTOprazole 40 MG in SYRINGE 0 ML IV SCH (09:19)
[2019-04-12] MEDS: predniSONE 5 MG TAB PO SCH (09:33)
[2019-04-12] MEDS: LACTOBACILLUS ACIDOPHILUS (FLORANEX) TAB PO SCH ×3 (10:07→17:36)
--- NOTE | 2019-04-12 14:40 | Anesthesiology Consultation ---
Date of Service April 12, 2019 Assessment & Plan Chart Review Chart Review: Acceptable Risk for Surgery and Patient NOT seen in Pre Admission Testing Consults Requested none ASA ASA4 Proposed Anesthesia Anesthesia Type: MAC Risk / Benefits Reviewed With: PT / POA / Parent / Guardian, Accepts Plan and Informed Consent Obtained History Surgery Operation Date: 04/11/19 09:20 Proposed Procedures p Esophagogastroduodenoscopy Dr Kasia Pedroza MD Operation Date: 04/12/19 09:15 Proposed Procedures p Colonoscopy Dr Kasia Pedroza MD Height/Weight Height: 5 ft 5 in Weight: 75.6 kg Allergies Allergy/AdvReac Type Severity Reaction Status Date / Time bupropion [From Wellbutrin] Allergy Seizure Unverified 04/10/19 10:43 Beta-Blockers AdvReac Dizziness Unverified 04/10/19 10:43 (Beta-Adrenergic Bloc ceftriaxone [From Rocephin] AdvReac Rash Unverified 04/10/19 10:43 Medications Home Medications Medication Instructions Recorded Confirmed Last Taken diltiazem HCl [Cardizem LA] 300 mg PO DAILY 04/10/19 04/10/19 04/10/19 duloxetine [Cymbalta] 30 mg PO BID 04/10/19 04/10/19 04/10/19 famotidine 40 mg PO DAILY 04/10/19 04/10/19 04/10/19 gabapentin [Neurontin] 600 mg PO TID 04/10/19 04/10/19 04/10/19 lactobacillus combination no.4 3,000 mmu cells PO DAILY 04/10/19 04/10/19 Unknown [Probiotic] leflunomide 10 mg PO DAILY 04/10/19 04/10/19 04/10/19 lisinopril 40 mg PO DAILY 04/10/19 04/10/19 04/10/19 meloxicam [Mobic] 7.5 mg PO BID 04/10/19 04/10/19 Unknown mirtazapine [Remeron] 30 mg PO HS 04/10/19 04/10/19 Unknown prednisone 5 mg PO DAILY 04/10/19 04/10/19 04/10/19 ropinirole [Requip] 0.5 mg PO BID 04/10/19 04/10/19 04/10/19 trazodone 0 mg PO HS PRN 04/10/19 04/10/19 Unknown triamterene-hydrochlorothiazid 1 cap PO DAILY 04/10/19 04/10/19 04/10/19 [Dyazide] Active Medications Generic Name Dose Route Start Last Admin Trade Name Freq PRN Reason Stop Dose Admin Acetaminophen 1,000 mg 04/11/19 22:00 04/12/19 13:50 Tylenol PO 05/11/19 21:59 Not Given Q8 TIMBO Diltiazem HCl 300 mg 04/11/19 09:00 04/12/19 09:18 Cardizem Cd PO 05/11/19 08:59 300 mg DAILY TIMBO Administration Duloxetine HCl 30 mg 04/10/19 21:00 04/12/19 09:18 Cymbalta PO 05/10/19 20:59 30 mg BID TIMBO Administration Famotidine 40 mg 04/11/19 09:00 04/12/19 09:17 Pepcid PO 05/11/19 08:59 40 mg DAILY TIMBO Administration Gabapentin 600 mg 04/12/19 09:00 04/12/19 09:34 Neurontin PO 05/12/19 08:59 600 mg QAM TIMBO Administration Gabapentin 900 mg 04/11/19 21:00 04/12/19 13:50 Neurontin PO 05/11/19 20:59 Not Given BID@1400,2100 TIMBO Pantoprazole Sodium 40 mg/ 10 mls @ 5 mls/min 04/10/19 13:30 04/12/19 09:19 Syringe IV 05/10/19 13:29 5 mls/min BID@0900,2100 TIMBO Administration Iron Sucrose 100 mg/ Sodium 105 mls @ 420 mls/hr 04/12/19 09:00 04/12/19 10:07 Chloride IV 05/12/19 08:59 Infused QAM TIMBO Infusion Ioversol 97 ml 04/10/19 11:31 04/10/19 11:31 Optiray 320 125ml IV 04/14/19 11:30 97 ml ONCE PRN Administration Interaction Checking Lactobacillus Acidophilus 2 tab 04/10/19 17:00 04/12/19 11:51 Floranex PO 05/10/19 16:59 Not Given TIDM TIMBO Leflunomide 10 mg 04/11/19 09:00 04/12/19 09:17 Arava PO 05/11/19 08:59 10 mg DAILY TIMBO Administration Lisinopril 40 mg 04/11/19 09:00 04/12/19 09:17 Zestril PO 05/11/19 08:59 40 mg DAILY TIMBO Administration Mirtazapine 30 mg 04/10/19 21:00 04/11/19 20:21 Remeron PO 05/10/19 20:59 30 mg HS TIMBO Administration Prednisone 5 mg 04/11/19 09:00 04/12/19 09:33 Prednisone PO 05/11/19 08:59 5 mg DAILY TIMBO Administration Ropinirole HCl 0.5 mg 04/10/19 21:00 04/12/19 09:18 Requip PO 05/10/19 20:59 0.5 mg BID TIMBO Administration Triamterene/HCTZ 1 cap 04/11/19 09:00 04/12/19 09:18 Dyazide 37.5/25mg PO 05/11/19 08:59 1 cap DAILY TIMBO Administration NPO Date Last Intake of Fluids: 04/12/19 Time Last Intake of Fluids: 03:00 Last Intake of Fluids Comment: prep Date Last Intake of Solids: 04/09/19 Time Last Intake of Solids: 18:00 Past Medical History Medical History History of substance abuse Elevated d-dimer Anemia (Acute) Hypertension (Chronic) Pneumonia (Acute) Restless leg syndrome (Chronic) Opiate addiction (Resolved) Inflammatory arthritis (Chronic) Mixed connective tissue disease (Chronic) Exercise / Class Metabolic Activity III < 4 Walking/Shop/Light housework Past Family History Family History Other Atrial fibrillation Past Surgical History Surgical History History of knee replacement (Resolved) Past Anesthesia History No Hx of Anesthesia Complications and No Family Hx of Anesthesia Complications History of PONV No Hx of PONV and No Hx of Motion Sickness Social History Smoking Status: Former smoker Smoking End Date: 1984 Hx Alcohol Use: Yes Hx Substance Use: Yes (Opioid dependance, EtOH dependance) substance use type: opiates Last Used Substance Other:: 9 mths ago rehab Physical Exam Vital Signs Last Vital Signs Temp 37.0 C 04/12/19 14:09 Pulse 88 04/12/19 14:09 Resp 18 04/12/19 14:09 BP 144/82 H 04/12/19 14:09 Pulse Ox 95 04/12/19 14:09 Constitutional + obese ENMT Mouth: + dental restorations Thyromental Distance: > or= 3.5 Finger Breadths Mallampati Class: II Neck normal visual inspection and trachea midline; neck extension not limited Respiratory normal respiratory effort Auscultation: lungs clear to auscultation bilaterally Cardiovascular Rate/Rhythm: regular rate and regular rhythm Heart Sounds: no murmur Vessels: no carotid bruit Musculoskeletal Spine: normal cervical ROM Neurologic moves all extremities Motor/Sensory: no sensory deficit Psychiatric Orientation: alert and oriented x 3
[2019-04-12] MEDS ORDERED: ePHEDrine sulfate 50 MG/ML AMP IV PRN (14:42)
[2019-04-12] MEDS ORDERED: ATROPINE SULFATE 0.1 MG/ML 10ML SYR IV PRN (14:42)
[2019-04-12] MEDS ORDERED: MIDAZOLAM HCL 1 MG/ML 2ML VIAL ONE (14:45)
[2019-04-12] MEDS ORDERED: fentaNYL citrate 100 MCG/2 ML VIAL ONE (14:46)
--- NOTE | 2019-04-12 15:57 | GI REPORT ---
Patient Name: Luis Miguel Emerson Procedure Date: 04/12/2019 2:20 PM Date of : 1950 Admit Type: Inpatient Age: 68 Gender: Female Attending MD: Cesar Pedroza MD Procedure: Colonoscopy Providers: Cesar Pedroza MD Referring MD: Tawanna Hopson Md Indications: Anemia Medicines: Monitored Anesthesia Care Complications: No immediate complications. Estimated Blood Loss: Estimated blood loss: none. Procedure: Pre-Anesthesia Assessment: - Prior to the procedure, a History and Physical was performed, and patient medications and allergies were reviewed. The patient is competent. The risks and benefits of the procedure and the sedation options and risks were discussed with the patient. All questions were answered and informed consent was obtained. Patient identification and proposed procedure were verified by the physician and the nurse in the procedure room. Mental Status Examination: alert and oriented. Airway Examination: normal oropharyngeal airway and neck mobility. Respiratory Examination: clear to auscultation. CV Examination: normal. ASA Grade Assessment: II - A patient with mild systemic disease. After reviewing the risks and benefits, the patient was deemed in satisfactory condition to undergo the procedure. The anesthesia plan was to use monitored anesthesia care (MAC). Immediately prior to administration of medications, the patient was re-assessed for adequacy to receive sedatives. The heart rate, respiratory rate, oxygen saturations, blood pressure, adequacy of pulmonary ventilation, and response to care were monitored throughout the procedure. The physical status of the patient was re-assessed after the procedure. After I obtained informed consent, the scope was passed under direct vision. Throughout the procedure, the patient's blood pressure, pulse, and oxygen saturations were monitored continuously. The Scope was introduced through the anus and advanced to the terminal ileum. The colonoscopy was performed without difficulty. The patient tolerated the procedure well. The quality of the bowel preparation was fair. The terminal ileum, ileocecal valve, appendiceal orifice, and rectum were photographed. Findings: The perianal and digital rectal examinations were normal. The terminal ileum appeared normal. Multiple small and large-mouthed diverticula were found in the sigmoid colon. Non-bleeding internal hemorrhoids were found during retroflexion. The hemorrhoids were small. Impression: - Preparation of the colon was fair. - The examined portion of the ileum was normal. - Diverticulosis in the sigmoid colon. - Non-bleeding internal hemorrhoids. - No specimens collected. Recommendation: - Return patient to hospital [facility] for ongoing care. - Resume regular diet. - To visualize the small bowel, perform video capsule endoscopy as OP. - Recall Gi if needed. Cesar Pedroza MD 04/12/2019 3:56:30 PM This report has been signed electronically. Note Initiated On: 04/12/2019 2:20 PM Number of Addenda: 0 I attest to the content of the Intraoperative Record and orders documented therein, exceptions below {[id number]}
--- NOTE | 2019-04-12 16:30 | Anesthesiology Progress Note ---
Date of Service April 12, 2019 Anesthesia Post Procedure Vital Signs Vital Signs: Temp Pulse Pulse Pulse Resp BP Pulse Ox 04/12/19 16:07 71 18 157/73 H 95 04/12/19 15:51 72 18 122/69 95 04/12/19 15:36 82 12 118/71 95 04/12/19 14:09 37.0 C 88 18 144/82 H 95 04/12/19 11:30 37.0 C 88 18 144/76 H 99 04/12/19 08:00 70 04/12/19 07:05 36.9 C 89 16 159/88 H 95 04/12/19 03:03 36.9 C 84 18 140/72 99 04/12/19 00:58 74 04/11/19 19:37 37.2 C 74 18 154/80 H 98 Pain Intensity Medial Back: Pain Intensity: 0 Transfer of Care Handoff Completed per policy Notes Mental Status: alert / awake / arousable and participated in evaluation Nausea / Vomiting: adequately controlled Pain: adequately controlled Airway Patency, RR, SpO2: stable & adequate BP & HR: stable & adequate Hydration State: stable & adequate Anesthetic Complications: no major complications apparent and Pt Satisfied with anesthetic care
--- NOTE | 2019-04-12 17:01 | Discharge Summary ---
Date of Service April 12, 2019 Admission HPI Per Admitting Provider Is a 68-year-old female who presented for nondescript chest pain and lightheadedness. She reports that the symptoms started 8 days ago when she had lightheadedness, dizziness, shortness of breath, some palpitations. She had recurrence of the symptoms yesterday x2 when walking around her yard sales. After being yard so she went grocery shopping and was unable to carry her groceries into the house due to symptomology. She decided to wait until this morning and presented to an urgent care center who referred her to the emergency department. Here she was found to be an a sinus tachycardia with an otherwise normal EKG. Routine laboratory studies revealed profound anemia with a hemoglobin of 6.1. DAVID revealed guaiac positive stool. Patient is on scheduled naproxen and meloxicam as well as 5 mg of prednisone p.o. daily. Patient denies any melena, hematochezia, hematemesis. She had no evidence of active bleeding. Patient did have a colonoscopy 6 months ago with an adenoma which was benign and evidence of diverticulosis. Patient denies any chest pain, back pain, flank pain, no abdominal pain, no pain with eating, no orthopnea, no fever, chills, sweats, rigors. She has no recent falls. She has no recent syncope. She has no other acute symptoms. Patient has a past medical history including mixed connective tissue disorder, esophageal achalasia, GERD, hypertension, history of syncope, history of CHF, history of anemia, history of depression, history of lower extremity neuropathy, hemorrhoids, degenerative disc disease, hip and knee replacement. Patient recently moved to this area from [place] to be closer to her immediate family. She was previously but was . She has 2 adult children that live out of the area. She is in the process of building a home in the [facility]. She is currently unassigned and looking for an supervisory aide to follow her in this area. Principal Diagnosis Symptomatic severe anemia, GI bleed Discharge Exam Constitutional WD/WN, vitals as above Eyes PERRL, conjunctivae normal, anicteric sclerae ENMT external ear and nose normal, oropharynx normal Neck trachea midline, no thyromegaly Respiratory normal respiratory effort, lungs clear to auscultation Cardiovascular RRR, no murmur, no edema Gastrointestinal (Abdomen) normal bowel sounds, soft, nontender, no hepatosplenomegaly Musculoskeletal Extremities: extremities normal to inspection; no cyanosis and no clubbing Skin no rashes, warm and dry Neurologic moves all extremities and awake; no focal motor deficits Psychiatric A+Ox3, euthymic affect Discharge Data Allergies Allergy/AdvReac Type Severity Reaction Status Date / Time bupropion [From Wellbutrin] Allergy Seizure Unverified 04/10/19 10:43 Beta-Blockers AdvReac Dizziness Unverified 04/10/19 10:43 (Beta-Adrenergic Bloc ceftriaxone [From Rocephin] AdvReac Rash Unverified 04/10/19 10:43 Consultations Gastroenterology Cardiology Procedures Performed Operation Date: 04/11/19 09:20 Actual Procedures p EGD Hemostasis - Cesar Pedroza MD Operation Date: 04/12/19 09:15 Actual Procedures p Colonoscopy - Cesar Pedroza MD Ordered Studies 04/10/19 10:16 CT angio chest PE protocol Stat 04/10/19 14:46 US venous doppler [facility] Urgent Hospital Course (1) Anemia: Patient presented with a hemoglobin of 6.1 with a guaiac positive stool after being dizzy, lightheaded, fatigued for approximately 1 week Prior colonoscopy 6 months ago with benign adenoma and diverticulosis Transfused 2 units PRBCs on admission and hgb now improved and stable at 8.5 MCV 81.6 -Fe studies show severe Fe deficiency with serum Fe only 6 and diana sferring saturation only 1%, ferritin was not checked prior to transfusion Consult gastroenterology -appreciated EGD with: Abnormal esophageal motility, large hiatal hernia, normal stomach and duodenum except a single non-bleeding angioectasia in the duodenum which was txd with APC and a clip Colonoscopy with: Diverticulosis, no other source of bleeding -Initially treated with IV PPI twice daily but does not need this upon discharge -We will temporarily discontinue all NSAIDs from home to include naproxen, meloxicam until further source of GI bleeding is ruled out with video capsule endoscopy -She was tolerating regular diet at time of discharge -She was also given 1 IV iron infusion in addition to the 2 units of packed red blood cells she received upon admission--> will have to hold off on po Fe until after video capsule endoscopy is completed -follow CBC as an outpatient in 1 to 2 weeks with PCP to ensure no further transfusion as needed (2) Mixed connective tissue disease: Follows with rheumatology as an outpatient With a h/o spinal rods, replacement hip, replacement knees On scheduled naproxen, meloxicam, and prednisone as an outpatient but NSAIDs on hold here for GI bleeding Continue outpatient management -continue leflunomide 10mg daily -replaced pain control (rather than NSAIDs) with increased dose of gabapentin to 900 mg p.o. 3 times daily and this helped -Also started scheduled Tylenol 1000 mill grams p.o. every 8 hours -She may be able to eventually restart her NSAIDs after further GI bleeding is ruled out on video capsule endoscopy (3) Hypertension: BPs stable Continue home meds of diltiazem, lisinopril, and Dyazide (4) Elevated d-dimer: Doppler LEs neg for DVT CTA of the chest negative for pulmonary embolus Unclear reason why elevated (5) History of substance abuse: History of opiate dependence secondary to chronic pain for mixed connective tissue disorder * Completed rehab program 9 months ago * Do not use opiates for pain control History of ethanol abuse * Previous heavy use of wine * No ethanol intake for 9 months Is doing very well with sobriety (6) Nonsustained ventricular tachycardia: 12 beat run vs SVT with aberrancy on hospital day #1, no further recurrence of this ECHO with preserved LV function here Asymptomatic Appreciate Cardiology consultation-no further eval needs to be done currently (7) GI bleed: as above, secondary to duodenum angioectasia and there may be others in the small bowel-plan for VCE as outpt (8) Restless leg syndrome: continue Requip (9) Thrombocytosis: reactive in the 500s secondary to severe iron deficiency -Resolved after PRBC transfusion -follow CBC as an outpatient (10) DVT prophylaxis: No chemical prophylaxis secondary to profound anemia and requirement for blood transfusion She was provided with [employer]ER [place] and SCDs for DVT prophylaxis Dispo-stable for discharge to home today Total Time Total Time Spent Total Time Spent (In Minutes): Greater than 30 minutes Total Time Includes: Examination of the Patient, Discharge Planning and Medication Reconciliation Discharge Plan Discharge Items Patient Disposition: Home - Self-Care Reason For Visit: ANEMIA Discharge Diagnosis: Severe anemia, GI bleed Condition: Good Discharge Goals: Diagnostic testing, Improve disease control, Learn about illness, Prevent disease and Therapeutic intervention Activity: Resume your previous activity Lifting: Gradually increase as tolerated Bathing: No limitations Exercise/Sports: Gradually increase as tolerated Driving/Machine Use: No limitations Non-emergency contact: Primary Care Provider and Manager Small Business Call non-emergency contact if: you have any medication questions, your symptoms worsen, your pain is not controlled, your pain is worsening, your pain is unusual for you, your pain is concerning for you and your temperature is above 101 Follow-up/Referrals: Dr. Krystian Lawson [Other] - 04/21/19 3:30 pm (We have arranged for you to become established with Dr. Krystian Lawson as your primary care provider. *You have an appointment scheduled with him on April 21 at 3:30 pm. The office is located at [address] [place] [address] in [place]. This is the [facility] section of [place]. If you have any questions or need to change/cancel this appointment, call the office at [phone].) Andria Newman [Nurse Practitioner] - (Andria and Dr. Pedroza's office should be contacting you to set up your video capsule endoscopy. Please call them if you have not heard from them by the end of the week.) Diet: Regular Addtl Provider Instructions: You were admitted for severe symptomatic anemia secondary to a bleeding abnormal blood vessel in the small bowel. This was cauterized and clipped to prevent further bleeding. He had a colonoscopy which did not show any other source of bleeding. The gastroenterology team from [facility] will arrange for you to have a video capsule endoscopy in the near future. You are severely iron deficient and were given a blood transfusion and IV iron during your hospital stay. Eventually, you should start on oral iron tablets, but do not start these until after your video capsule endoscopy. Your new primary care physician should check your CBC in about 1 to 2 weeks to ensure that her hemoglobin continues to trend upward instead of dropping back down again. Please avoid taking your meloxicam and any other NSAIDs for now as they can worsen bleeding. Your gabapentin was increased to 900 mg 3 times a day for your chronic back pain. Please follow-up with the primary care physician as scheduled for you on 04/21. If you develop bloody stools, black tarry stools, or vomiting blood, please call 911 or go to the closest emergency room. Prescriptions: New acetaminophen [Tylenol Extra Strength] 500 mg Tablet 1,000 mg PO Q8 PRN (Reason: pain) Qty: 30 RF: 0 Continued famotidine 40 mg Tablet 40 mg PO DAILY RF: 0 prednisone 5 mg Tablet 5 mg PO DAILY RF: 0 leflunomide 10 mg Tablet 10 mg PO DAILY RF: 0 triamterene-hydrochlorothiazid [Dyazide] 37.5-25 mg Capsule 1 cap PO DAILY RF: 0 trazodone 100 mg Tablet PO HS PRN (Reason: Sleep) RF: 0 mirtazapine [Remeron] 30 mg Tablet 30 mg PO HS RF: 0 ropinirole [Requip] 0.5 mg Tablet 0.5 mg PO BID RF: 0 lisinopril 40 mg Tablet 40 mg PO DAILY RF: 0 diltiazem HCl [Cardizem LA] 300 mg Tablet Extended Release 24 Hr 300 mg PO DAILY RF: 0 duloxetine [Cymbalta] 30 mg Capsule,Delayed Release(Dr/Ec) 30 mg PO BID RF: 0 Probiotic 3 billion cell Capsule 3,000 mmu cells PO DAILY RF: 0 Changed gabapentin [Neurontin] 300 mg Capsule 900 mg PO TID 30 Days Qty: 270 RF: 0 Discontinued meloxicam [Mobic] 7.5 mg Tablet 7.5 mg PO BID RF: 0 Stand-Alone Forms: [facility] Discharge Orders: Discharge Order (Routine); Ordered 04/12/19 Ordered By: Tawanna Hopson Admission Data Admit Date/Time: 04/10/19 13:19 Attending Provider: Tawanna Hopson Admit Provider: Reyes Diaz Primary Care Provider: Krystian Lawson Other Providers: Reyes Diaz ; Vikas Mccormick ; Dwight Davila Service: Telemetry Other Interventions: Discharge Summary Assessment (RN) Last Done: 04/12/19 16:25 Pending Studies at Discharge: No
== END 2019-04-12 18:33 | disposition home or self-care (01) | DRG 812 ==
LOC: ED 09:39 → SUATTDRO 13:19 → 2S 13:19